=== PATIENT | female | born 1965 | race Caucasian/White ===

== ENCOUNTER 2019-08-24 10:00 | Outpatient (CLI) | payer OTHER, SELFPAY ==
--- NOTE | ~2019-08-24 | XR_ITS ---
EXAMINATION: XR shoulder LT min 2V EXAM DATE: 08/24/2019 10:18 INDICATION: Initial encounter following injury, with pain of the left shoulder. TECHNIQUE: The following left shoulder projections obtained: frontal projection with internal rotatio n, frontal projection with external rotation, Grashey, and scapular Y view (4+ views). There is no p rior study for comparison. FINDINGS: No evidence of left shoulder rotator cuff calcific tendinosis. There is mild acromioclav icular joint primary osteoarthritis. There are no acute fractures or dislocations identified. There is no subcutaneous gas. The soft tissue is unremarkable. There are no radiopaque foreign bodies. IMPRESSION: 1. XR shoulder LT min 2V exam without acute osseous findings. Reviewed, dictated and finalized at location B. S ORDER SPECIALIST
== END 2019-08-24 10:01 | disposition home or self-care (01) ==
LOC: ANHIMG 10:06
PROVIDERS: PCP Physician Assistant; Visit Provider Physician Assistant
DX: S49.92XA Unspecified injury of left shoulder and upper arm, initial encounter (principal); X58.XXXA Exposure to other specified factors, initial encounter
CPT/HCPCS: 73030

== ENCOUNTER 2019-09-15 10:55 | Outpatient (CLI) | payer OTHER, SELFPAY ==
--- NOTE | ~2019-09-15 | MR_ITS ---
EXAMINATION: MR shoulder LT wo con DATE: 09/15/2019 12:05 INDICATION: Left shoulder pain post left shoulder and upper arm injury. TECHNIQUE: Magnetic resonance imaging (MRI) of the left shoulder was performed without intravenous co ntrast. Sequences included axial PD-weighted FS FSE, coronal oblique PD-weighted FS FSE, coronal obli que T2-weighted FS FSE, sagittal PD-weighted FS FSE, and sagittal T1-weighted SE. COMPARISON: Left shoulder radiographs dated 08/24/2019 FINDINGS: Coracoacromial arch: The acromion undersurface is curved in morphology (type II). The coracoacromial ligament is normal. M ild acromioclavicular osteoarthritis. Rotator cuff: Large articular sided tear involving the entire supraspinatus and infraspinatus tendons along the sup erior facet footplate which involves greater than two thirds of the tendon thickness throughout the t ear and with at least a small region of full-thickness tear at the distal conjoined portion of the te ndon. The remaining frayed appearing bursal sided fibers of both tendons are of indeterminate functio nal integrity. The tear margin is retracted approximately 2.5 cm medially to the level of the apex of the humeral head with severe tendinopathy and fraying extending an additional 1.5 cm medially from t he retracted tear margin. Teres minor tendon is normal. Mild to moderate subscapularis tendinopathy w ith full thickness tear along the cephalad half of the lesser tuberosity footplate of the subscapular is tendon. Normal rotator cuff muscle bulk and signal. Biceps tendon, glenoid labrum and glenohumeral cartilage: The normal-appearing long head of the biceps tendon has subluxed across the subscapularis tear defect at the cephalad aspect of the lesser tuberosity. Glenoid labrum is normal. Glenohumeral cartilage i s normal. Fluid: Physiologic amount of fluid in the glenohumeral joint and biceps tendon sheath. No loose osteochondra l bodies. Moderate amount of fluid along with mild synovitis throughout the subacromial/subdeltoid bu rsae which could be related to bursitis and/or decompression of fluid from the glenoid humeral joint space via the full-thickness portions of the rotator cuff tear. Bones: Bone alignment is normal. No fracture or pathologic marrow replacing process. Mild cystic change at t he greater tuberosity likely related to chronic rotator cuff disease.. IMPRESSION: 1. Severe supraspinatus and infraspinatus tendinopathy with large tear along the footplates of both t endons with large severe bursal sided component and smaller full-thickness component. The residual in tact appearing bursal sided fibers appear frayed and are of indeterminate functional integrity. 2. Full-thickness tear of the cephalad half of the subscapularis footplate allowing subluxation of th e long head biceps tendon across the rim of the intertubercular groove across the lesser tuberosity s ubscapular tendon tear defect. 3. Likely at least mild subacromial/subdeltoid bursitis. 4. Mild acromioclavicular osteoarthritis. Reviewed, dictated and finalized at location A. ESALE ACCOUNT MANAGER IMPRESSION: 1. Severe supraspinatus and infraspinatus tendinopathy with large tear along th e footplates of both tendons with large severe bursal sided component and small er full-thickness component. The residual intact appearing bursal sided fibers appear frayed and are of indeterminate functional integrity. 2. Full-thickness tear of the cephalad half of the subscapularis footplate allo wing subluxation of the long head biceps tendon across the rim of the intertube rcular groove across the lesser tuberosity subscapular tendon tear defect. 3. Likely at least mild subacromial/subdeltoid bursitis. 4. Mild acromioclavicular osteoarthritis.
== END 2019-09-15 10:56 | disposition home or self-care (01) ==
PROVIDERS: PCP Physician Assistant; Visit Provider Physician Assistant
DX: S49.92XA Unspecified injury of left shoulder and upper arm, initial encounter (principal); X58.XXXA Exposure to other specified factors, initial encounter; M19.012 Primary osteoarthritis, left shoulder; M75.52 Bursitis of left shoulder
CPT/HCPCS: 73221

== ENCOUNTER 2019-09-18 01:30 | Day surgery (SDC) | payer OTHER, SELFPAY ==
[2019-09-07 11:53] VITALS: BMI 41.5
[2019-09-18] VITALS (10 sets, daily range): BP systolic 119–148; BP diastolic 65–84; PULSE 82–92; RESP 12–17; TEMP 36.2; O2SAT 92–100
--- NOTE | ~2019-09-18 | XR_ITS ---
EXAMINATION: XR surgery orthopedic DATE: 09/18/2019 09:41 INDICATION: Arthrodesis at the left second tarsal metatarsal joint. TECHNIQUE: 3 fluoroscopic spot images of the left fore/mid foot were obtained during procedure perfor med by Dr. Murphy. Radiologist was not present for the imaging or procedure. The amount of fluorosc opy time used during this procedure was 0.3 minutes. COMPARISON: 04/17/2019 FINDINGS: Arthrodesis at the second tarsal metatarsal joint with dorsal staple fixation. Alignment appears to r emain anatomic. Osteoarthritis with mild to moderate joint space narrowing at the third and fourth ta rsal metatarsal joints. No fracture. IMPRESSION: 1. Second tarsal metatarsal arthrodesis with dorsal staple fixation. See procedure note for further d etail. Reviewed, dictated and finalized at location A. STIGATIONS MANAGER IMPRESSION: 1. Second tarsal metatarsal arthrodesis with dorsal staple fixation. See proced ure note for further detail.
[2019-09-18] MEDS: LACTATED RINGERS 1,000 ML 30 ML IV CONT ×2 (06:30→10:03)
[2019-09-18 07:11] LABS: Glucose Point of Care 107 (65-105)
--- NOTE | 2019-09-18 07:19 | WPDANESEPPF ---
Anes - Initial Pre Proc Eval Procedure: Operation Date: 09/18/19 07:30 Proposed Procedures p Arthrodesis Second Metatarsal Cuneiform Joint Left Foot - Robin Murphy JR, MD Date/Time: 09/18/19 07:19 Surgeon: Robin Murphy JR, MD Pre Op Diagnosis: OA Second Metatarsal Cuneiform Joint Left Foot Patient Data Age: 53 Gender: F Height: 1.7 m Weight: 121 kg Last Vital Signs Temp 36.2 C L 09/18/19 07:02 Pulse 88 09/18/19 07:02 Resp 16 09/18/19 07:02 BP 148/78 H 09/18/19 07:02 Pulse Ox 97 09/18/19 07:02 Allergies Allergy/AdvReac Type Severity Reaction Status Date / Time No Known Allergies Allergy Unverified 09/18/19 06:12 Home Medications Medication Instructions Recorded Confirmed Type alprazolam 0.5 mg PO DIRECTED PRN 09/07/19 09/18/19 History celecoxib 100 mg PO BID 09/07/19 09/18/19 History losartan-hydrochlorothiazide 1 tablet PO DAILY 09/07/19 09/18/19 History metformin 750 mg PO DAILY 09/07/19 09/18/19 History multivitamin 1 tablet PO DAILY 09/07/19 09/18/19 History venlafaxine 150 mg PO DAILY 09/07/19 09/18/19 History Laboratory Tests 09/18/19 06:36 POC Capillary Glucose 107 mg/dl mg/dl (65-105) Patient hx anesthesia problems: none Family hx anesthesia problems: none PMFSH Past Medical History Medical History (Updated 09/17/19 @ 11:12 by Raul Salinas DO) Anxiety Depression Diabetes type 2, controlled Hypertension Palpitation Surgical History Surgical History (Updated 09/17/19 @ 11:12 by Raul Salinas DO) History of mitral valve repair 1973 for MVP History of tonsillectomy History of tubal ligation Family History Family History (Updated 11/07/18 @ 09:47 by DOCTOR UNKNOWN) Father Family history of malignant neoplasm Grandparent Family history of lung cancer Social History Social History Smoking status: Never smoker Anes - Eval Final PreProcedure Day of Procedure 09/18/19 07:19 Patient weight: morbidly obese Heart: regular rate and rhythm Lungs: clear to auscultation and normal air movement Airway: Mallampati scale Neurological: alert and oriented Last oral intake: >/= 8 hours ASA classification: III Emergent: no Anesthetic plan: proceed Anesthesia type and monitoring: general LMA and standard monitoring Informed Consent: The patient's anesthetic plan and its attendant risks and benefits were discussed with the patient/family/POA. Questions were solicited and answers provided to the satisfaction of the patient/family/POA.
--- NOTE | 2019-09-18 07:23 | WPDANESPNB ---
Anes - Peripheral Nerve Block Date/Time: 09/18/19 07:23 I have discussed with the patient/family/POA the placement of a peripheral nerve block for post-operative pain management, including associated risks, benefits, complications, and side effects. Alternative methods of post-operative analgesia were detailed. Questions were solicited and answers provided to the satisfaction of the patient/family/POA. Time-Out: A pre-procedural Time-Out was completed immediately before starting the procedure and confirmed: Patient Identification, Site, Procedure, Patient Position and the Availability of Requisite Equipment. Clinical Indications: Acute post-operative pain management requested by the operative surgeon. Nerve Block Insertion Note Anes-nerve block: posterior fossa sciatic left and adductor canal left Patient position: supine (for adductor canal) and other (right lateral for popliteal) Skin prep: chlorhexidine Needle: 22 gauge, stimulating, insulated echogenic needle. Needle length: 80 mm Technique: nerve stimulation lost at (mA) (for popliteal lost at 0.2) and ultrasound Injectate: bupivacaine 0.5% with epi 5 mcg/ml (20 mL for popliteal, 10 mL for adductor canal) Observations: tolerated well Complications: none Procedure start time:: 727 Procedure end time:: 737
--- NOTE | 2019-09-18 07:34 | WPDHPUPDATE1 ---
History and Physical Update Update Date/Time: 09/18/19 07:34 History and Physical has been reviewed, including an updated exam of the patient. There are NO changes in the patient's condition. Risks, benefits, and alternatives have been discussed and questions answered. Patient agrees to proceed with procedure.
[2019-09-18] MEDS: ceFAZolin 3 GM/D5W 100 ML 100 ML IVPB (07:40)
--- NOTE | 2019-09-18 09:54 | PM.OP ---
Procedure Note - Brief Procedure Note - Brief Date of procedure: 09/18/19 Pre-op diagnosis: OA Second Metatarsal Cuneiform Joint Left Foot Post-op diagnosis: same Procedure performed: Second metatarsal cuneiform joint fusion left foot Anesthesia: GLMA Surgeon: Robin Murphy JR, DPM Estimated blood loss (mL): 1 Complications: No immediate complications Condition: stable Disposition: same day
[2019-09-18 10:19] LABS: Glucose Point of Care 120 (65-105)
--- NOTE | 2019-09-18 13:59 | OP_ITS ---
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 PROCEDURE: Arthrodesis of the 2nd metatarsocuneiform joint left foot. PATHOLOGY: None. ANESTHESIA: General with a popliteal fossa block. HEMOSTASIS: Pneumatic ankle tourniquet at 250 mmHg. ESTIMATED BLOOD LOSS: Minimal. MATERIALS USED: 1.1 x 2.6 cm allograft, 1 Arthrex Nitinol staple, 20 x 15 mm, 3-0 Vicryl and 4-0 Vicryl and 4-0 Monocryl. INJECTABLES: None. COMPLICATIONS: None. PROCEDURE IN DETAIL: Under mild sedation, the patient was brought into the operating room, placed on the operating table in the supine position. Pneumatic ankle tourniquet was placed about the patient's left ankle. Following general anesthesia and a previous popliteal fossa block, the left foot was then scrubbed, prepped, and draped in the usual aseptic manner. An Esmarch bandage was then used to examine the patient's left foot and the pneumatic ankle tourniquet was then inflated. Attention was then directed to the dorsal aspect of the 2nd metatarsocuneiform joint, where incision was made just proximal to the navicular cuneiform joint and extended distal to the central shaft of the 2nd metatarsal and extended to the shaft of the 2nd metatarsal proximally. At this point, careful dissection was continued deep down to the medial aspect of the 2nd metatarsocuneiform joint. The neurovascular bundle was identified and retracted laterally. At this point, careful dissection was continued deep down to the periosteum and capsular structures overlying the 2nd metatarsocuneiform joint. There was no remaining neurovascular branches in the field. Next, a periosteum capsular incision was made. The full length of the skin incision exposing the 2nd metatarsocuneiform joint. There was 2 large loose bodies present to the dorsum of the 2nd metatarsocuneiform joint. These were carefully released of all capsular and ligamentous structures and removed from the operative site. At this point, there was a large void present to the dorsum of the 2nd metatarsocuneiform joint. Next, two 0.62 inch K-wires were driven from dorsal to plantar across the central aspect of the middle cuneiform and corresponding 2nd metatarsal base. A distractor joint structure was then placed from dorsal plantar and then used to distract the 2nd metatarsocuneiform joint. Remaining cartilage was denuded with utilizing a curette. At this point, a 0.062 inch K-wire was used to drill into the anterior aspect of the central cuneiform and base of the 2nd metatarsal. At this point, there was a large deficit noted to the 2nd metatarsocuneiform joint and a tricortical allograft was shaped and cut to size on the back table after being measured approximately 0.8 cm x 1.4 cm in depth. This was packed deep into the 2nd metatarsocuneiform joint utilizing a bone tamp. Care was taken to make sure that the dorsal aspect of the bone wedge was flushed as to prevent an osteophyte. There were some large osteophytosis noted to the base of the 2nd metatarsal as well as the dorsum of the central cuneiform, this was debrided. Furthermore, there was an osteophyte present just slightly medially along the dorsum of the lateral 1st metatarsal and 3rd metatarsocuneiform joint. This was also debrided utilizing a rongeur. Care was taken to make sure that the entire dorsum of the central midfoot was smoothed with a . Next, a 20 mm x 15 mm Nitinol compression staple from Arthrex was driven from dorsal to plantar across the arthrodesis site with excellent compression noted. Fluoroscopy views were taken both from the dorsal aspect and lateral
== END 2019-09-18 11:50 | disposition home or self-care (01) ==
PROVIDERS: PCP Physician Assistant; Visit Provider Podiatrist Foot & Ankle Surgery
PROC: (CPT 28750; principal; 2019-09-18 07:30)
DX: M19.072 Primary osteoarthritis, left ankle and foot (principal); G89.18 Other acute postprocedural pain; I10 Essential (primary) hypertension; E11.9 Type 2 diabetes mellitus without complications; F41.8 Other specified anxiety disorders; Z79.84 Long term (current) use of oral hypoglycemic drugs; E66.01 Morbid (severe) obesity due to excess calories; Z68.41 Body mass index [BMI] 40.0-44.9, adult
CPT/HCPCS: 28740; 64445; 64447; C1713; J0690; J1100; J2250; J2405; J2704; J3010; J7120

== ENCOUNTER 2019-11-24 05:47 | Outpatient (CLI) | payer OTHER, SELFPAY ==
[2019-11-24 18:34] LABS: SARS-CoV-2 RNA PCR Negative
== END 2019-11-24 05:48 | disposition home or self-care (01) ==
LOC: ANHCOVIDDT 05:48
PROVIDERS: PCP Physician Assistant; Visit Provider Orthopaedic Surgery
DX: Z01.818 Encounter for other preprocedural examination (principal); Z11.59 Encounter for screening for other viral diseases
CPT/HCPCS: 87635; C9803; U0003

== ENCOUNTER 2019-11-24 07:45 | Outpatient (CLI) | payer OTHER, SELFPAY ==
[2019-11-24 08:08] LABS: Blood Urea Nitrogen 16 mg/dL (7-17); Carbon Dioxide 29 mmol/L (22-30); Chloride 102 mmol/L (98-107); Estimated Glomerular Filt Rate > 60; Glucose 118 mg/dL (65-105); Potassium 3.6 mmol/L (3.4-5.0); Sodium 138 mmol/L (137-145)
== END 2019-11-24 07:46 | disposition home or self-care (01) ==
PROVIDERS: PCP Physician Assistant; Visit Provider Orthopaedic Surgery
DX: Z01.818 Encounter for other preprocedural examination (principal); R73.03 Prediabetes
CPT/HCPCS: 36415; 80048

== ENCOUNTER 2019-11-26 01:15 | Day surgery (SDC) | payer OTHER, SELFPAY ==
[2019-11-23 12:55] VITALS: BMI 41.4
[2019-11-26] VITALS (9 sets, daily range): BP systolic 115–154; BP diastolic 63–74; PULSE 77–98; RESP 13–21; TEMP 36.1–36.7; O2SAT 93–98
--- NOTE | 2019-11-26 07:06 | WPDANESEPPF ---
Anes - Initial Pre Proc Eval Procedure: Operation Date: 11/26/19 07:30 Proposed Procedures p Left Arthroscopic Rotator Cuff Repair - Antonio Fajardo MD Date/Time: 11/26/19 07:06 Surgeon: Antonio Fajardo MD Pre Op Diagnosis: left rotator cuff tear Patient Data Age: 54 Gender: F Height: 1.7 m Weight: 120.5 kg Last Vital Signs Temp 36.7 C 11/26/19 06:30 Pulse 89 11/26/19 06:30 Resp 20 11/26/19 06:30 BP 144/73 H 11/26/19 06:30 Pulse Ox 97 11/26/19 06:30 Allergies Allergy/AdvReac Type Severity Reaction Status Date / Time No Known Allergies Allergy Verified 11/26/19 07:01 Home Medications Medication Instructions Recorded Confirmed Type alprazolam 0.5 mg PO DIRECTED PRN 09/07/19 11/26/19 History celecoxib 100 mg PO BID 09/07/19 11/26/19 History losartan-hydrochlorothiazide 1 tablet PO DAILY 09/07/19 11/26/19 History metformin 750 mg PO DAILY 09/07/19 11/26/19 History aspirin 81 mg tablet,delayed 81 mg PO DAILY 09/18/19 11/26/19 History release venlafaxine 150 mg 150 mg PO DAILY 09/18/19 11/26/19 History capsule,extended release 24 hr oxycodone-acetaminophen 1 tablet PO Q4-6H PRN 11/23/19 11/26/19 History terbinafine HCl 250 mg PO DAILY 11/23/19 11/26/19 History Patient hx anesthesia problems: none Family hx anesthesia problems: none PMFSH Past Medical History Medical History (Updated 11/26/19 @ 07:11 by Robert Goff MD) Anxiety Arthritis Cardiac arrhythmia Depression Diabetes type 2, controlled Hypertension Mitral valve prolapse VALVE SURGERY 1973- CHILD FOR MITRAL VALVE PROLAPSE, FOLLOWS WITH DR. HOOKER Morbid obesity with BMI of 40.0-44.9, adult Palpitation Traumatic tear of left rotator cuff Surgical History Surgical History History of foot surgery History of mitral valve repair 1973 for MVP History of tonsillectomy History of tubal ligation Social History Social History Smoking status: Never smoker Gender identity (if verbalized by the patient): Female Anes - Evpercy Final PreProcedure Day of Procedure 11/26/19 07:06 Patient weight: morbidly obese Heart: regular rate and rhythm Lungs: clear to auscultation and normal air movement Airway: Mallampati scale class II Neurological: alert and oriented Last oral intake: >/= 8 hours ASA classification: III Emergent: no Anesthetic plan: proceed Anesthesia type and monitoring: general ETT Informed Consent: The patient's anesthetic plan and its attendant risks and benefits were discussed with the patient/family/POA. Questions were solicited and answers provided to the satisfaction of the patient/family/POA.
[2019-11-26] MEDS: LACTATED RINGERS 1,000 ML 30 ML IV CONT ×2 (07:23→11:33)
--- NOTE | 2019-11-26 07:23 | WPDANESPNB ---
Anes - Peripheral Nerve Block Date/Time: 11/26/19 07:23 I have discussed with the patient/family/POA the placement of a peripheral nerve block for post-operative pain management, including associated risks, benefits, complications, and side effects. Alternative methods of post-operative analgesia were detailed. Questions were solicited and answers provided to the satisfaction of the patient/family/POA. Time-Out: A pre-procedural Time-Out was completed immediately before starting the procedure and confirmed: Patient Identification, Site, Procedure, Patient Position and the Availability of Requisite Equipment. Clinical Indications: Acute post-operative pain management requested by the operative surgeon. Nerve Block Insertion Note Anes-nerve block: supraclavicular left Patient position: supine Skin prep: chlorhexidine Needle: 22 gauge, stimulating, insulated echogenic needle. Needle length: 80 mm Technique: ultrasound (in plane) Injectate: bupivacaine 0.5% with epi 5 mcg/ml (20cc) Observations: tolerated well Complications: none Procedure start time:: 730 Procedure end time:: 735
--- NOTE | 2019-11-26 07:23 | WPDHPUPDATE1 ---
History and Physical Update Update Date/Time: 11/26/19 07:23 History and Physical has been reviewed, including an updated exam of the patient. There are NO changes in the patient's condition. Risks, benefits, and alternatives have been discussed and questions answered. Patient agrees to proceed with procedure.
[2019-11-26 07:24] LABS: Glucose Point of Care 107 (65-105)
[2019-11-26] MEDS: ceFAZolin 3 GM/D5W 100 ML 100 ML IVPB (07:41)
[2019-11-26] MEDS: ONDANSETRON INJ 4 MG/2 ML VIAL IV PUSH (12:05)
[2019-11-26 13:02] LABS: Glucose Point of Care 173 (65-105)
--- NOTE | 2019-11-27 15:49 | PM.PROC ---
Procedure Note - Detailed Date of procedure: 11/26/19 Pre-op diagnosis: left rotator cuff tear Post-op diagnosis: other (1. Massive rotator cuff tear. 2. Partial biceps tendon tear. 3. Subacromial impingement. ) Procedure performed: 1. Arthroscopic rotator cuff repair. 2. Arthroscopic biceps tenodesis. 3. Arthroscopic subacromial decompression. Description of procedure: Massive tear including the upper border of the subscapularis. Acute on chronic injury. Supraspinatus anterior tear as well as the anterior infraspinatus. Repair accomplished with 4 bone tunnels. Simple sutures x3 through each tunnel. Margin convergence at the posterior split. Biceps tenodesis incorporated into the anterior tunnel. Superior labral degenerative lesion treated with simple debridement. Subacromial decompression and bursectomy performed with acromioplasty. Anesthesia: GLMA and regional Surgeon: Antonio Fajardo MD Estimated blood loss (mL): 20 Complications: None Disposition: PACU Findings: Brief history: Patient was previously well with respect to the shoulder. She fell. She complains of exquisite intense shoulder pain and weakness. Surgical repair performed subacutely. Patient is morbidly obese. Operative detail: Preoperative antibiotics were given. An interscalene block was administered in the preoperative area. The patient was bought brought to the operating room. A general anesthetic was administered. The patient was carefully positioned in the beach chair position. The head and neck were carefully positioned. The non operative extremity was also carefully positioned. The shoulder was prepped and draped in the usual sterile fashion. Examination was performed. Standard posterior and anterior arthroscopic portals were established. Inflow achieved with the arthroscopic pump using saline and epinephrine. The glenohumeral joint was carefully inspected. The articular cartilage showed minimal fraying. The superior glenoid labrum had degenerative tearing. There was a moderate capsulitis. No contracture. The biceps was partially torn. It was released from the superior labrum. Massive rotator cuff tear was evident. This included the upper border of the subscapularis. Tissue was in good shape. Attention was turned to the bursal side. The rotator cuff footprint was lightly prepared for repair. Subacromial decompression was performed with the arthroscopic shaver. The tear was carefully assessed for mobility. Tissue releases were performed primarily superiorly where there was some adhesions. The tendon was modestly mobile. Subscapularis was repaired with a single bone tunnel using the ArthroTunneler technique. Three sutures were passed. Two tapes and 1 ortho cord. The antegrade suture Passer was used. Multiple accessory arthroscopic portals were used as needed. Simple sutures were tied. The repair was quite contreras. Biceps tendon was incorporated by weaving the suture through the biceps tendon prior to tying of the sutures. Proximal stump was debrided. Three tunnels were placed in the greater tuberosity. Three sutures were placed through each tunnel. Sequential passing the sutures was performed after assessing mobility of the tear. It was somewhat L-shaped with the posterior split at the infraspinatus. This was treated with a single margin convergence suture. Sutures were tied arthroscopically. Complete repair was accomplished. The arthroscopic instruments were removed. The wounds were closed with 3-0 Monocryl subcuticular suture and steri strips. There were no complications. A sling was applied and the patient brought to the recovery room.
== END 2019-11-26 13:47 | disposition home or self-care (01) ==
PROVIDERS: PCP Physician Assistant; Visit Provider Orthopaedic Surgery
PROC: (CPT 29805; principal; 2019-11-26 07:30)
DX: S46.012A Strain of muscle(s) and tendon(s) of the rotator cuff of left shoulder, initial encounter (principal); S46.212A Strain of muscle, fascia and tendon of other parts of biceps, left arm, initial encounter; M75.42 Impingement syndrome of left shoulder; W11.XXXA Fall on and from ladder, initial encounter; G89.18 Other acute postprocedural pain; I10 Essential (primary) hypertension; E11.9 Type 2 diabetes mellitus without complications; M19.90 Unspecified osteoarthritis, unspecified site; F32.9 Major depressive disorder, single episode, unspecified; Z79.84 Long term (current) use of oral hypoglycemic drugs; Z79.82 Long term (current) use of aspirin; E66.01 Morbid (severe) obesity due to excess calories; Z68.41 Body mass index [BMI] 40.0-44.9, adult
CPT/HCPCS: 29827; 29828; 29826; 64415; A4565; J0330; J0360; J0690; J1100; J2250; J2405; J2704; J2710; J7120

== ENCOUNTER 2020-12-29 08:29 | Outpatient (CLI) | payer MEDICAID, SELFPAY ==
[2020-12-29 08:55] LABS: Basophils Absolute Auto 0.1 K/mm3 (0.0-0.1); Basophils Percent Auto 0.6 % (0.2-1.2); Hematocrit 37.1 % (37.0-47.0); Hemoglobin 11.7 g/dL (12.0-15.0); Immature Granulocyte Absolute 0.03 K/mm3 (0.00-0.031); Immature Granulocyte Percent A 0.3 % (0-0.5); Lymphocytes Absolute Auto 1.99 K/mm3 (0.9-3.2); Mean Corpuscular HGB Conc 31.5 g/dl (32-36); Mean Corpuscular Hemoglobin 28.6 pg (26-34); Mean Corpuscular Volume 90.7 fl (80-100); Mean Platelet Volume 8.7 fl (7.4-10.4); Monocytes Absolute Auto 0.8 K/mm3 (0.1-0.6); Monocytes Percent Auto 8.3 % (2.6-8.5); Neutrophils Absolute Auto 6.2 K/mm3 (1.3-6.7); Neutrophils Percent Auto 68.8 % (45.5-73.1); Platelet Count Result 361 k/mm3 (150-375); Red Blood Count 4.09 M/mm3 (4.2-5.4); Red Cell Distribution Width 13.3 % (11.5-14.5)
[2020-12-29 10:19] LABS: Alanine Aminotransferase 31 U/L (4-35); Albumin Level 4.4 g/dL (3.5-5.1); Alkaline Phosphatase 101 U/L (38-126); Anion Gap 6 mmol/L (8-16); Aspartate Amino Transferase 33 U/L (14-36); Bilirubin,Total 0.4 mg/dL (0.2-1.3); Blood Urea Nitrogen 18 mg/dL (7-17); Calcium 9.5 mg/dL (8.4-10.2); Carbon Dioxide 32 mmol/L (22-30); Chloride 104 mmol/L (98-107); Cholesterol 188 mg/dL (0-200); Estimated Glomerular Filt Rate 51; Free T4 Free Thyroxine 1.05 ng/mL (0.78-2.19); Glucose 123 mg/dL (65-105); HDL Direct 47 mg/dL; Hemoglobin A1C 6.6 % (<5.7); LDL Cholesterol Direct 95 mg/dL; Potassium 4.4 mmol/L (3.4-5.0); Sodium 142 mmol/L (137-145); Thyroid Stimulating Hormone 0.155 uIU/mL (0.465-4.680); Triglycerides 111 mg/dL (<150)
== END 2020-12-29 08:30 | disposition home or self-care (01) ==
LOC: ANHLAB 08:35
PROVIDERS: PCP Physician Assistant; Visit Provider Physician Assistant
DX: R73.03 Prediabetes (principal); Z51.81 Encounter for therapeutic drug level monitoring; Z79.899 Other long term (current) drug therapy; Z13.220 Encounter for screening for lipoid disorders
CPT/HCPCS: 36415; 80053; 80061; 83036; 84439; 84443; 85025

== ENCOUNTER 2021-01-31 08:01 | Outpatient (CLI) | payer MEDICAID, SELFPAY ==
--- NOTE | ~2021-01-31 | MM_ITS ---
EXAMINATION: MM screening jet BI w kenia HISTORY: Screening TECHNIQUE: Craniocaudal and mediolateral oblique 3-D tomosynthesis images were obtained and synthetic 2-D images were generated. CAD analysis was submitted and interpreted. COMPARISON: Comparison to multiple prior studies sequentially, with oldest reviewed study dated 09/10. BREAST PARENCHYMAL COMPOSITION: There are scattered areas of fibroglandular density. FINDINGS: There is no evidence of suspicious mass, calcification, or architectural distortion to sugg est malignancy in either breast. There has been no suspicious interval change. IMPRESSION: 1. No mammographic evidence of malignancy. 2. Recommend routine screening mammography in one year. BI-RADS Category 1: Negative Reviewed, dictated and finalized at location A.
== END 2021-01-31 08:02 | disposition home or self-care (01) ==
PROVIDERS: PCP Physician Assistant; Visit Provider Obstetrics & Gynecology
DX: Z12.31 Encounter for screening mammogram for malignant neoplasm of breast (principal)
CPT/HCPCS: 77063; 77067

== ENCOUNTER 2021-06-12 14:12 | Outpatient (CLI) | payer MEDICAID, SELFPAY ==
--- NOTE | ~2021-06-12 | MR_ITS ---
EXAMINATION: MR shoulder LT wo con DATE: 06/12/2021 15:37 INDICATION: Left rotator cuff tear presenting with left shoulder pain. TECHNIQUE: Magnetic resonance imaging (MRI) of the left shoulder was performed without intravenous co ntrast. Sequences included axial PD-weighted FS FSE, coronal oblique PD-weighted FS FSE, coronal obli que T2-weighted FS FSE, sagittal PD-weighted FS FSE, and sagittal T1-weighted SE. COMPARISON: Left shoulder radiographs dated 06/02/2021 and left shoulder MRI dated 09/15/2019 FINDINGS: Study is mildly limited by relatively decreased [id number] due to patient body habitus necessita ting use of a wrap coil. Coracoacromial arch: The acromion undersurface is flat in morphology (type I) and appears thinned consistent with interval acromioplasty. The remaining coracoacromial ligament is normal. Mild acromioclavicular osteoarthriti s. Rotator cuff: There are suture anchor sites along the superior and middle facet footplates of the greater tuberosit y consistent with interval supraspinatus and infraspinatus tendon tear repair. There is a recurrent f ull-thickness tear involving the entire supraspinatus and anterior two thirds of the infraspinatus te ndon. Tear margin is retracted up to 2 cm medially situated midway between the apex of the humeral he ad and the superior rim of the glenoid. There is moderate fatty atrophy of the infraspinatus muscle b melissa and retraction with at least mild fatty atrophy of the supraspinatus muscle belly. The teres min or tendon is normal. There has been interval repair of the previously seen subscapularis tendon tear which appears to remain intact. No asymmetric atrophy or abnormal signal of the infraspinatus and ter es minor muscles. Biceps tendon, glenoid labrum and glenohumeral cartilage: Interval resection of the long head biceps tendon from the biceps labral complex and bicipital tenode sis with anchor at the cephalad aspect of the bicipital groove. Small linear tear at the base of the 12:00-12:30 position of the glenoid labrum which was not appreciated on the prior study. Mild cystlik e change along the underlying superior rim of the glenoid at the site of a prior small focus of edema suggest the tear may have been previously present but has progressed since the prior study. Glenohum eral cartilage appears to remain normal. Fluid: Small glenohumeral joint effusion which extends into the subacromial/subdeltoid bursa through the ful l-thickness rotator cuff tear. No loose osteochondral bodies. Bones: Normal marrow signal with no edema, fracture or abnormal marrow replacing process. There is mild ceph alad subluxation of the humeral head with respect to the glenoid with narrowing of the subacromial sp earlene now measuring approximately 2.5 cm between the humeral head cartilage surface and the undersurfac e of the acromion. IMPRESSION: 1. Recurrent massive full-thickness rotator cuff tear involving the entire supraspinatus and anterior two thirds of the infraspinatus tendon. 2. Intact subscapularis tendon repair. 3. Intact bicipital tenodesis. 4. New versus progressive small tear at the base of the superior glenoid labrum. 5. Unchanged mild acromioclavicular osteoarthritis. Reviewed, dictated and finalized at location A. E MECHANIC IMPRESSION: 1. Recurrent massive full-thickness rotator cuff tear involving the entire supr aspinatus and anterior two thirds of the infraspinatus tendon. 2. Intact subscapularis tendon repair. 3. Intact bicipital tenodesis. 4. New versus progressive small tear at the base of the superior glenoid labrum . 5. Unchanged mild acromioclavicular osteoarthritis.
== END 2021-06-12 14:13 | disposition home or self-care (01) ==
LOC: ANHIMG 14:17
PROVIDERS: PCP Physician Assistant; Visit Provider Orthopaedic Surgery
DX: M75.102 Unspecified rotator cuff tear or rupture of left shoulder, not specified as traumatic (principal); M75.22 Bicipital tendinitis, left shoulder; M19.012 Primary osteoarthritis, left shoulder
CPT/HCPCS: 73221

== ENCOUNTER 2021-09-26 07:02 | Outpatient (RCR) | payer MEDICAID, SELFPAY ==
--- NOTE | 2021-09-26 08:07 | PTOPEVAL ---
Thank you for referring Marianne Chin to [facility].? The patient is scheduled to be seen for therapy? 1 x/week for 3 weeks. Please review, sign, date and return this plan of care DALLIN. I agree with and certify that the following plan of care is medically necessary. 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 Subjective Information She c/o right medial knee pain Query Text:As Reported By Patient/ for no reason. She received Family an injection 09/08/21. She reports limitations with walking, standing, squatting, kneeling, daily task. Denies fitness program Diagnostic Tests X-Rays For This Problem Yes: Mild tricompartmental degenerative changes Previous Treatments Previous Treatments For This Problem no Pain Assessment Self Report Pain Assessment Right Knee(s) Reported Pain Level 0 Pain Description Burning Pain Frequency Chronic Lowest Pain Intensity 0 Greatest Pain Intensity 5 Pain Aggravating Factors Exercise/Activity,Stair Climbing,Walking,Weight Bearing/Standing Lower Extremity Range of Motion Knee Range of Motion Left Knee Flexion Range of Motion - Active 110 Knee Extension Range of Motion - Active 0 Right Knee Flexion Range of Motion - Active 115 Knee Extension Range of Motion - Active 0 Lower Extremity Muscle Strength Testing General Lower Extremity Strength Gross Lower Extremity Strength caitlin hip and knee 5/5 except the following right and left hip abd: 3/5 right knee flex: 4/5 Muscle Length Testing Muscle Length Testing Two-Joint Hip Flexor Shortened Muscles Short (R) Iliopsoas,Short (L) Iliopsoas,Short (R) Rectus Femoris,Short (L) Rectus Femoris,Short (R) Ilial Tib Band,Short (L) Ilial Tib Band Piriformis w/Hip Neutral (R) Severe Tightness,(L) Severe Tightness Left Hamstring Length 0 Query Text:(90 - 90 Position) Right Hamstring Length 0 Query Text:(90 - 90 Position) Posture Posture Standing Position Shoulder Posture (L) Rounded,(R) Rounded Scapula Posture (L) Protracted,(R) Protracted, (L) Elevated,(R) Elevated Weight Distribution
--- NOTE | 2021-09-28 11:24 | PCPTNOTE ---
Patient called & cancelled her remaining scheduled appointment this date due to work schedule and unable to attend therapy.
--- NOTE | 2021-09-28 13:31 | PCPTNOTE ---
Admitting Provider: Attending Provider: OSVALDO Abbott Patient:Marianne Chin Date of :1965 Physical Therapy Discharge Summary Patient called on 09/28/21 to cancel her remaining therapy visits due to changing jobs and her new work schedule. Patient?s initial visit was on 09/26/2021 and was seen for 1 visits. The goals have been not met at this time. Thank you for referring this patient to [facility]. Please review, sign, date and return this discharge summary DALLIN. I have been updated about the patient's current status and I agree with discharge from the above service at this time. Referring Physician Date
== END 2021-12-12 12:48 | disposition home or self-care (01) ==
LOC: ANHPT 07:02
PROVIDERS: PCP Physician Assistant; Visit Provider Physician Assistant Surgical
DX: M25.561 Pain in right knee (principal)
CPT/HCPCS: 97110; 97161

== ENCOUNTER 2022-05-07 08:55 | Outpatient (CLI) | payer OTHER, MEDICAID, SELFPAY ==
--- NOTE | 2022-05-07 09:00 | ECG_ITS ---
Measurements Intervals [place] Rate: 80 P: 33 MT: 160 QRS: -46 QRSD: 94 T: 12 QT: 355 QTc: 411 Interpretive Statements SINUS RHYTHM BASELINE ARTIFACT LEFT ANTERIOR FASCICULAR BLOCK CANNOT RULE OUT ANTEROSEPTAL MYOCARDIAL INFARCTION, OF INDETERMINATE AGE ABNORMAL ECG COMPARED TO ECG 02/06/2019 16:45:06 LEFT ANTERIOR FASCICULAR BLOCK NOW PRESENT Electronically Signed On 05-07-2022 16:10:09 CDT by Christopher Rodriguez M.D.
[2022-05-07 10:13] LABS: Anion Gap 13 mmol/L (8-16); Blood Urea Nitrogen 16 mg/dL (7-17); Calcium 8.6 mg/dL (8.4-10.2); Carbon Dioxide 26 mmol/L (22-30); Chloride 100 mmol/L (98-107); Estimated Glomerular Filt Rate 36; Glucose 100 mg/dL (65-110); Potassium 3.8 mmol/L (3.4-5.0); Sodium 139 mmol/L (137-145)
== END 2022-05-07 08:56 | disposition home or self-care (01) ==
LOC: ANHSURGERY 09:05
PROVIDERS: Anesthesiology; PCP Physician Assistant; Visit Provider Orthopaedic Surgery
DX: E11.9 Type 2 diabetes mellitus without complications (principal); Z01.818 Encounter for other preprocedural examination; I44.7 Left bundle-branch block, unspecified
CPT/HCPCS: 36415; 80048; 93005

== ENCOUNTER 2022-05-08 02:00 | Day surgery (SDC) | payer OTHER, MEDICAID, SELFPAY ==
--- NOTE | 2022-05-04 10:46 | PC.NURSE ---
PRE-OP INSTRUCTIONS, PLEASE READ CAREFULLY Report to the Outpatient Waiting Room, entrance under the green pavilion located off [facility], at time _0830_ on date _08/08/21_. Planned Procedure Time: _1030_. Time changes happen often and if your time is changed the preop area will call you the afternoon before. - You and your visitor will be asked to self-screen and do not enter if you have any COVID symptoms. - We encourage only one visitor and NO visitors under age 16 are allowed at this time. Your visitor will receive communication by the phone number that is given day of service. - The patient visitor is requested to social distance or may leave the building when not with patient due to restrictions. - A mask is required within the hospital. Patients may have clear liquids (water, carbonated beverages, clear teas, apple juice) until 3 hours prior to surgery (0730 AM) with a maximum of 20 ounces. - No food from midnight until time of surgery Take the following medications with a SIP of water the morning of surgery: _ALPRAZOLAM, BUPROPION_ Medications to discontinue per DR. KIRK - _ASPIRIN & DICLOFENAC OF TODAY_ Date to take last dose____05/04/22 Please no make-up, nail persian, hairspray, perfume, deodorant, or body powder the day of surgery. No jewelry (including any body piercings) or valuables the day of surgery, leave them at home. Please take a shower or bath the night before, or the morning of, surgery with an antibacterial soap. Wear comfortable, loose fitting clothing. - Jewelry must be removed prior to entering the operating room. Rings and piercings that are not removed may be cut off. - The hospital will not accept responsibility for valuables. - Please leave all valuables, including medications, at home the day of surgery. If you are going home after surgery, a licensed pile driver must drive you home. - NO public transportation without another adult. - We recommend that an adult stay with you for 24 hours following discharge. - We also recommend that you do not drive, make important decision, drink alcoholic beverages, or take any drugs that were not prescribed by your health care provider for at least 24 hours after your discharge time. Follow any additional instructions given to you from your surgeon. If you or anyone in your household have experienced Covid symptoms in the past week, please notify your surgeon or the nurse liaison at the phone number below for possible testing. Telephone instructions given to ____PT and asked if any additional questions and then verbalized understanding. Patient advised to call surgeon office or pre surgery nurse liaison [phone] if any additional questions.
[2022-05-04 10:53] VITALS: BMI 39.5
--- NOTE | 2022-05-07 09:55 | WPDANESEPPF ---
Anes - Initial Pre Proc Eval Procedure: Operation Date: 05/08/22 10:30 Proposed Procedures p Open Reduction Internal Fixation Left Ulnar Shaft Fracture - Antonio Fajardo MD Date/Time: 05/07/22 09:56 Surgeon: Antonio Fajardo MD Pre Op Diagnosis: left ulnar shaft fx Patient Data Age: 56 Gender: F Height: 1.7 m Weight: 114.54 kg Allergies Allergy/AdvReac Type Severity Reaction Status Date / Time cariprazine [From [facility]] Allergy Unknown SUICIDAL Verified 05/08/22 08:34 HALLUCINATIONS Home Medications Medication Instructions Recorded Confirmed Type alprazolam 0.5 mg tablet 0.5 mg PO DIRECTED PRN Anxiety 09/07/19 05/04/22 History losartan 50 mg-hydrochlorothiazide 1 tablet PO DAILY 09/07/19 05/04/22 History 12.5 mg tablet metformin 750 mg tablet,extended 750 mg PO DAILY 09/07/19 05/04/22 History release 24 hr aspirin 81 mg tablet,delayed 81 mg PO DAILY 09/18/19 05/04/22 History release (Adult Aspirin Regimen) progesterone micronized 100 mg 100 mg PO QAM 06/16/21 05/04/22 History capsule diclofenac sodium 75 mg 75 mg PO BID 08/31/21 05/04/22 History tablet,delayed release bupropion HCl 150 mg 24 hr tablet, 150 mg PO QAM 04/09/22 05/04/22 History extended release finasteride 1 mg tablet 1 mg PO DAILY 05/08/22 05/08/22 History semaglutide 0.25 mg or 0.5 mg (2 0.25 mg subcut WEEKLY 05/08/22 05/08/22 History mg/1.5 mL) subcutaneous pen injector (Ozempic) Patient hx anesthesia problems: none Family hx anesthesia problems: none Results Review: All pre-operative results and documents have been reviewed as part of the pre-operative evaluation. [facility]LY [facility] Past Medical History Medical History (Updated 05/02/22 @ 15:42 by Amanda Browne MA) Abscess of urethra and/or periurethral region Anxiety Arthritis Bronchitis Cardiac arrhythmia Depression Diabetes type 2, controlled History of patent ductus arteriosus (~1972) Hypertension Mitral valve prolapse VALVE SURGERY 1973- CHILD FOR MITRAL VALVE PROLAPSE, FOLLOWS WITH DR. FLEISSNER Morbid obesity with BMI of 40.0-44.9, adult Palpitation Traumatic tear of left rotator cuff Vertigo Surgical History Surgical History (Updated 04/18/22 @ 08:22 by Elif Colunga) History of colonoscopy (01/27/16) sigmoid diverticulitis History of foot surgery both feet History of mitral valve repair 1973 for MVP History of neck surgery (~1979) lymphectomy--benign History of right knee surgery (~2003) History of rotator cuff surgery left shoulder History of stress incontinence procedure using tension free vaginal tape (04/14/15) History of tonsillectomy (~1971) History of tubal ligation (12/20/00) Family History Family History Father Family history of malignant neoplasm Grandparent Family history of lung cancer Social History Social History (Updated 05/02/22 @ 15:37 by Amanda Browne MA) Smoking status: Never smoker Second hand tobacco smoke exposure: No Alcohol intake: never Substance use: never Substance use type: does not use Living arrangements: with family Gender identity (if verbalized by the patient): Female Spiritual care concerns: No Has the Lack of Transportation Kept You From Medical Appointments or From Getting Medications?: No Within the Past 12 Months, Were You Worried Whether Your Food Would Run Out Before You Got Money to Buy More?: Never True What is Your Housing Situation Today?: I Have Housing Are You Worried That in the Next 2 Months, You May Not Have Your Own Housing to Live In?: No Do You Have Trouble Paying Your Heating Or Electricity Bill?: Yes Do You Have Trouble Paying For Medicines?: Yes Are You Currently Unemployed and Looking for Work?: No Highest Level of Education Completed: Associate Degree Anes - Eval Final PreProcedure Day of Procedure 05/07/22 09:56 Patient weight: morbidly
[2022-05-08] VITALS (7 sets, daily range): BP systolic 103–127; BP diastolic 57–80; PULSE 70–102; RESP 14–17; TEMP 36.1–36.9; O2SAT 95–100
--- NOTE | ~2022-05-08 | XR_ITS ---
EXAMINATION: XR surgery orthopedic DATE: 05/08/2022 12:51 INDICATION: Open reduction internal fixation of a left ulnar diaphyseal fracture. TECHNIQUE: 5 fluoroscopic spot images of the left wrist and distal forearm were obtained during proce dure performed by Dr. Fajardo. Radiologist was not present for the imaging or procedure. The amoun t of fluoroscopy time used during this procedure was 0.5 minutes. COMPARISON: None. FINDINGS: Volar plate and screw fixation spanning a nondisplaced mildly comminuted fractures at the distal diap hysis of the left ulna. There is approximately 10 degrees residual volar angulation. No other fractur es identified. Mild osteoarthritis at the first carpometacarpal joint. Soft tissue swelling and expec alana small amount of postoperative gas in the soft tissues at the ulnar aspect of the distal forearm. IMPRESSION: 1. Near-anatomic alignment post open reduction internal fixation of a mildly comminuted distal diaphy seal fracture of the left ulna. Reviewed, dictated and finalized at location A. IMPRESSION: 1. Near-anatomic alignment post open reduction internal fixation of a mildly co mminuted distal diaphyseal fracture of the left ulna.
--- NOTE | 2022-05-08 07:28 | WPDHPUPDATE1 ---
History and Physical Update Update Date/Time: 05/08/22 07:28 History and Physical has been reviewed, including an updated exam of the patient. There are NO changes in the patient's condition. Risks, benefits, and alternatives have been discussed and questions answered. Patient agrees to proceed with procedure.
[2022-05-08] MEDS: ACETAMINOPHEN 500 MG TABLET 1000 MG PO (08:38)
[2022-05-08 09:00] LABS: Glucose Point of Care 100 mg/dl (65-105)
[2022-05-08] MEDS: LACTATED RINGERS 1,000 ML 30 ML IV CONT ×2 (09:02→12:49)
[2022-05-08] MEDS: KETOROLAC 15 MG/ML VIAL (*BKC) IV PUSH (09:04)
[2022-05-08] MEDS: ceFAZolin 2 GM/D5W 50 ML 2 GM/50 ML BAG IVPB (10:38)
--- NOTE | 2022-05-08 10:47 | WPDANESPNB ---
Anes - Peripheral Nerve Block Date/Time: 05/08/22 10:47 I have discussed with the patient/family/POA the placement of a peripheral nerve block for post-operative pain management, including associated risks, benefits, complications, and side effects. Alternative methods of post-operative analgesia were detailed. Questions were solicited and answers provided to the satisfaction of the patient/family/POA. Time-Out: A pre-procedural Time-Out was completed immediately before starting the procedure and confirmed: Patient Identification, Site, Procedure, Patient Position and the Availability of Requisite Equipment. Clinical Indications: Acute post-operative pain management requested by the operative surgeon. Nerve Block Insertion Note Anes-nerve block: supraclavicular left Patient position: supine Skin prep: chlorhexidine Needle: 22 gauge, stimulating, insulated echogenic needle. Needle length: 80 mm Technique: ultrasound (in plane) Injectate: bupivacaine 0.5% with epi 5 mcg/ml (20cc) Observations: tolerated well Complications: none Procedure start time:: 1035 Procedure end time:: 1040
--- NOTE | 2022-05-08 13:49 | P.OP_ITS ---
Procedure Note - Detailed Date of Procedure 05/08/22 Pre-op Diagnosis left ulnar shaft fx Post-op Diagnosis Same Procedure Performed ORIF left distal ulnar shaft fracture. Surgeon Antonio Fajardo MD Anesthesia General Indications Unstable fracture with displacement. Findings Moderately distal. Specialized distal ulnar plate required. Placed on the flat lateral slightly volar aspect of the bone. Description of Procedure Preoperative antibiotics were given. A general anesthetic was administered. The arm was placed on a hand board. Well-padded tourniquet placed on the upper arm. The limb was prepped and draped in the usual sterile fashion. The limb was exsanguinated and the tourniquet inflated to 250 mmHg. A longitudinal incision was placed along the ulnar border of the ulna. The fracture was i dentified and minimal stripping performed to expose the bone. Anatomic reduction performed with temporary provisional pinning. Plate was fit and adjusted with biplanar fluoroscopy assistance. A standard 6 hole plate did not provide adequate fit and screw purchase distal. Therefore, the specialty distal ulna plate was used with the distal locking cluster. This required slight contouring. Compression screws were used except for locking screws in the distal holes as well as a single locking screw in the proximal fragment. The fracture was anatomically reduced with slight compression. The tourniquet was released. Meticulous hemostasis maintained. The wound closed in layers with 2- 0 Vicryl suture, 3-0 Monocryl suture, and 4-0 running Monocryl suture. Steri- Strips placed on the skin. Well-padded bulky dressing with ulnar gutter splint. Patient extubated and brought to the recovery room stable condition. There were no complications. Implants Accu Med distal ulna specially plate. Estimated Blood Loss 5 Drains No Pathology None sent Complications No immediate complications Condition Stable Disposition PACU [facility] Billing Surgery - Charge Forward: Surgery Billing
[2022-05-08 14:18] LABS: Glucose Point of Care 92 mg/dl (65-105)
== END 2022-05-08 14:40 | disposition home or self-care (01) ==
PROVIDERS: PCP Physician Assistant; Visit Provider Orthopaedic Surgery
PROC: (CPT 25575; principal; 2022-05-08 10:30)
DX: S52.202A Unspecified fracture of shaft of left ulna, initial encounter for closed fracture (principal); W01.190A Fall on same level from slipping, tripping and stumbling with subsequent striking against furniture, initial encounter; E11.9 Type 2 diabetes mellitus without complications; I10 Essential (primary) hypertension; F41.9 Anxiety disorder, unspecified; F32.A Depression, unspecified; E66.01 Morbid (severe) obesity due to excess calories; Z68.38 Body mass index [BMI] 38.0-38.9, adult; Z79.84 Long term (current) use of oral hypoglycemic drugs; Z79.82 Long term (current) use of aspirin; Z79.899 Other long term (current) drug therapy
CPT/HCPCS: 25545; 36415; 80048; 82948; 93005; 99199; A4565; A9270; C1713; J0690; J1100; J1885; J2250; J2405; J2704; J3010; J7120

== ENCOUNTER → 2022-05-17 10:52 | Outpatient (CLI) | payer OTHER, MEDICAID, SELFPAY ==
--- NOTE | ~2022-05-17 | US_ITS ---
US renal BI 05/17/2022 11:12 Procedure: Realtime transabdominal ultrasound of the kidneys and bladder. Indication: Elevated creatinine Comparison: No prior studies for comparison. Findings: Renal echotexture is normal bilaterally without hydronephrosis, contour deforming mass or r enal calculus. The right kidney measures 10.4 cm and left kidney measures 10.8 cm. Bladder is not we ll distended for evaluation. Impression: 1: Unremarkable renal ultrasound. No stones, masses or hydronephrosis. Reviewed, dictated and finalized at location A. Impression: 1: Unremarkable renal ultrasound. No stones, masses or hydronephrosis.
== END ==
PROVIDERS: PCP Physician Assistant; Visit Provider Physician Assistant
DX: R79.89 Other specified abnormal findings of blood chemistry (principal)
CPT/HCPCS: 76775

== ENCOUNTER 2022-07-05 11:03 | Outpatient (CLI) | payer OTHER, MEDICAID, SELFPAY ==
--- NOTE | ~2022-07-05 | MM_ITS ---
EXAMINATION: MM screening jet BI w kenia HISTORY: Screening TECHNIQUE: Craniocaudal and mediolateral oblique 3-D tomosynthesis images were obtained and synthetic 2-D images were generated. CAD analysis was submitted and interpreted. COMPARISON: Comparison to multiple prior studies sequentially, with oldest reviewed study dated 12/2014. BREAST PARENCHYMAL COMPOSITION: There are scattered areas of fibroglandular density. FINDINGS: There is no evidence of suspicious mass, calcification, or architectural distortion to sugg est malignancy in either breast. There has been no suspicious interval change. IMPRESSION: 1. No mammographic evidence of malignancy. 2. Recommend routine screening mammography in one year. BI-RADS Category 1: Negative Reviewed, dictated and finalized at location A. ET WORKER
== END 2022-07-05 11:04 | disposition home or self-care (01) ==
PROVIDERS: PCP Physician Assistant; Visit Provider Obstetrics & Gynecology
DX: Z12.31 Encounter for screening mammogram for malignant neoplasm of breast (principal)
CPT/HCPCS: 77063; 77067

== ENCOUNTER 2023-04-19 09:28 | Outpatient (CLI) | payer OTHER, MEDICAID, SELFPAY ==
[2023-04-19 10:45] LABS: Basophils Absolute Auto 0.1 K/mm3 (0.0-0.1); Basophils Percent Auto 0.7 % (0.2-1.2); Eosinophils Percent Auto 0.1 % (0-4.4); Hematocrit 40.2 % (37.0-47.0); Immature Granulocyte Absolute 0.01 K/mm3 (0.00-0.031); Immature Granulocyte Percent A 0.1 % (0-0.5); Lymphocytes Absolute Auto 2.22 K/mm3 (0.9-3.2); Lymphocytes Percent Auto 27.4 % (18.3-44.2); Mean Corpuscular HGB Conc 32.3 g/dl (32-36); Mean Corpuscular Volume 92.6 fl (80-100); Mean Platelet Volume 8.7 fl (7.4-10.4); Monocytes Absolute Auto 0.6 K/mm3 (0.1-0.6); Monocytes Percent Auto 7.9 % (2.6-8.5); Neutrophils Absolute Auto 5.2 K/mm3 (1.3-6.7); Neutrophils Percent Auto 63.8 % (45.5-73.1); Platelet Count Result 371 k/mm3 (150-375); Red Blood Count 4.34 M/mm3 (4.2-5.4); Red Cell Distribution Width 12.9 % (11.5-14.5); White Blood Count 8.1 K/mm3 (4.5-10.0)
[2023-04-19 11:00] LABS: Alanine Aminotransferase 21 U/L (6-35); Albumin Level 4.5 g/dL (3.5-5.1); Alkaline Phosphatase 89 U/L (38-126); Anion Gap 6 mmol/L (8-16); Aspartate Amino Transferase 31 U/L (14-36); Bilirubin,Total 0.6 mg/dL (0.2-1.3); Blood Urea Nitrogen 15 mg/dL (7-17); Calcium 8.9 mg/dL (8.4-10.2); Carbon Dioxide 30 mmol/L (22-30); Chloride 101 mmol/L (98-107); Estimated Glomerular Filt Rate 36; Glucose 83 mg/dL (65-110); Potassium 4.2 mmol/L (3.4-5.0); Sodium 137 mmol/L (137-145)
[2023-04-19 11:25] LABS: Thyroid Stimulating Hormone 0.528 uIU/mL (0.465-4.680)
[2023-04-22 04:44] LABS: Thyroid Peroxidase Antibodies <1 IU/mL (<9)
[2023-04-23 12:28] LABS: Testosterone Free 25.5 pg/mL (0.1-6.4); Testosterone Total 209 ng/dL (2-45)
[2023-04-24 06:34] LABS: FSH 22.3 mIU/mL (***); LH 12.5 mIU/mL (***); Triiodothyronine T3 Free 2.3 pg/mL (2.3-4.2)
[2023-04-29 01:36] LABS: Estradiol, Ultrasensitive 44 pg/mL
== END 2023-04-19 09:29 | disposition home or self-care (01) ==
DX: R53.83 Other fatigue (principal); L65.9 Nonscarring hair loss, unspecified; E05.90 Thyrotoxicosis, unspecified without thyrotoxic crisis or storm; R68.82 Decreased libido; R63.5 Abnormal weight gain; N95.1 Menopausal and female climacteric states
CPT/HCPCS: 36415; 80053; 82670; 83001; 83002; 84144; 84402; 84403; 84443; 84481; 85025; 86376; 86800

== ENCOUNTER 2023-07-25 12:40 | Outpatient (CLI) | payer OTHER, MEDICAID, SELFPAY ==
--- NOTE | ~2023-07-25 | XR_ITS ---
EXAMINATION: XR knee RT min 4V DATE: 07/25/2023 12:54 INDICATION: Unilateral primary osteoarthritis of the right knee TECHNIQUE: Weight bearing anteroposterior and [place], sunrise, and flexed lateral views of the rig ht knee were obtained COMPARISON: 04/09/2022 FINDINGS: Alignment is normal. No fracture. Marginal osteophytes in all 3 compartments of the right knee consi stent with tricompartmental osteoarthritis. The joint spaces appear relatively preserved in the arora lofemoral and lateral compartments. Interval progression of now moderate to severe joint space narrow ing in the medial compartment. No joint effusion/layering lipohemarthrosis. Soft tissues are unremark able. IMPRESSION: 1. Moderate to severe medial compartment predominant tricompartmental osteoarthritis at the right kne e. Reviewed, dictated and finalized at location A. AND SCENERY MAKER IMPRESSION: 1. Moderate to severe medial compartment predominant tricompartmental osteoarth ritis at the right knee.
== END 2023-07-25 12:41 | disposition home or self-care (01) ==
LOC: ANHIMG 12:42
PROVIDERS: PCP Physician Assistant; Visit Provider Orthopaedic Surgery
DX: M17.11 Unilateral primary osteoarthritis, right knee (principal)
CPT/HCPCS: 73564

== ENCOUNTER 2023-10-11 15:05 | Outpatient (CLI) | payer OTHER, MEDICAID, SELFPAY ==
--- NOTE | ~2023-10-11 | MM_ITS ---
EXAMINATION: MM screening jet BI w kenia HISTORY: Screening mammogram TECHNIQUE: Craniocaudal and mediolateral oblique 3-D tomosynthesis images were obtained and synthetic 2-D images were generated. CAD analysis was submitted and interpreted. COMPARISON: 07/05/2022, 01/31/2021 bilateral screening mammogram examinations BREAST PARENCHYMAL COMPOSITION: There are scattered areas of fibroglandular density. FINDINGS: There is no evidence of suspicious mass, calcification, or architectural distortion to sugg est malignancy in either breast. There has been no suspicious interval change. IMPRESSION: 1. No mammographic evidence of malignancy. 2. Recommend routine screening mammography in one year. BI-RADS Category 1: Negative Reviewed, dictated and finalized at location A.
== END 2023-10-11 15:06 | disposition home or self-care (01) ==
LOC: ANHIMG 15:08
PROVIDERS: PCP Physician Assistant; Visit Provider Obstetrics & Gynecology
DX: Z12.31 Encounter for screening mammogram for malignant neoplasm of breast (principal)
CPT/HCPCS: 77063; 77067

== ENCOUNTER 2023-12-17 08:20 | Outpatient (CLI) | payer OTHER, MEDICARE, MEDICAID, SELFPAY ==
--- NOTE | ~2023-12-17 | XR_ITS ---
Right Shoulder Technique: AP and scapular Y views were obtained. Clinical History: Pain Findings: No fracture or dislocation is seen. Osseous alignment is anatomic. The glenohumeral joint i s intact. There is mild AC joint degenerative change. Soft tissues are unremarkable. Impression: Mild AC joint degenerative change. Reviewed, dictated and finalized at [facility]. Impression: Mild AC joint degenerative change.
== END 2023-12-17 08:21 | disposition home or self-care (01) ==
LOC: ANHIMG 08:23
PROVIDERS: PCP Physician Assistant; Visit Provider Physician Assistant Surgical
DX: M19.011 Primary osteoarthritis, right shoulder (principal)
CPT/HCPCS: 73030

== ENCOUNTER 2024-01-20 08:06 | Outpatient (CLI) | payer OTHER, SELFPAY ==
[2024-01-20 09:10] LABS: Hematocrit 38.3 % (37.0-47.0); Hemoglobin 12.5 g/dL (12.0-15.0); Mean Corpuscular HGB Conc 32.6 g/dl (32-36); Mean Corpuscular Hemoglobin 30.8 pg (26-34); Mean Corpuscular Volume 94.3 fl (80-100); Mean Platelet Volume 9.1 fl (7.4-10.4); Platelet Count Result 367 k/mm3 (150-375); Red Blood Count 4.06 M/mm3 (4.2-5.4); Red Cell Distribution Width 13.3 % (11.5-14.5); White Blood Count 9.3 K/mm3 (4.5-10.0)
[2024-01-20 09:18] LABS: Anion Gap 9 mmol/L (4-12); Blood Urea Nitrogen 20 mg/dL (7-17); Calcium 8.9 mg/dL (8.4-10.2); Carbon Dioxide 28 mmol/L (22-30); Chloride 103 mmol/L (98-107); Estimated Glomerular Filt Rate 36; Glucose 97 mg/dL (65-110); Potassium 4.1 mmol/L (3.4-5.0); Sodium 140 mmol/L (137-145)
== END 2024-01-20 08:07 | disposition home or self-care (01) ==
LOC: ANHSURGERY 08:09
PROVIDERS: Anesthesiology; PCP Physician Assistant; Visit Provider Obstetrics & Gynecology
DX: Z01.818 Encounter for other preprocedural examination (principal); N93.9 Abnormal uterine and vaginal bleeding, unspecified; E11.9 Type 2 diabetes mellitus without complications
CPT/HCPCS: 36415; 80048; 85027

== ENCOUNTER 2024-01-23 01:43 | Day surgery (SDC) | payer OTHER, SELFPAY ==
--- NOTE | 2024-01-13 16:11 | SUR.PREOP ---
Report to the Outpatient Waiting Room, entrance under the green pavilion located off [facility], at time 0900 on date 01/23/24. Planned Procedure Time: 1100. Time changes happen often and if your time is changed the preop area will call you the afternoon before. - You and your visitor will be asked to self-screen and do not enter if you have any COVID symptoms. - A mask is optional within the hospital at this time. Patients may have clear liquids (water, carbonated beverages, clear teas, apple juice) until 3 hours prior to surgery with a maximum of 20 ounces. - No food from midnight until time of surgery - Infants may have breast milk until 4 hours before surgery, infant formula 6 hours prior to surgery. - Children will be allowed to drink immediately following surgery. If applicable, please bring a bottle or sippy cup to assist with drinking. Juice, water, soda, and popsicles are readily available. For infants on formula, please bring formula the day of surgery. Pacifiers are allowed. Take the following medications with a SIP of water the morning of surgery: ALPRAZOLAM & BUPROPION DO NOT STOP ANY OF YOUR OTHER PRESCRIPTION MEDICATIONS PRIOR TO SURGERY ?EXCEPT THE FOLLOWING Medications to discontinue per physician OZEMPIC Date to take last dose 01/12/[address] SERRANO IN REGARDS TO ASPIRIN Please no make-up, nail albanian, hairspray, perfume, deodorant, or body powder the day of surgery. No jewelry (including any body piercings) or valuables the day of surgery, leave them at home. Please take a shower or bath the night before, or the morning of, surgery with an antibacterial soap. Wear comfortable, loose fitting clothing. Children are encouraged to wear pajamas. - Jewelry must be removed prior to entering the operating room. Rings and piercings that are not removed may be cut off. - The hospital will not accept responsibility for valuables. - Please leave all valuables, including medications, at home the day of surgery. If you are going home after surgery, a licensed driver utility worker must drive you home. - NO public transportation without another adult if you receive anesthesia. - We recommend that an adult stay with you for 24 hours following discharge. - We also recommend that you do not drive, make important decision, drink alcoholic beverages, or take any drugs that were not prescribed by your health care provider for at least 24 hours after your discharge time. For Pediatric surgeries, we recommend two adults accompany the child home. Follow any additional instructions given to you from your surgeon. If you or anyone in your household have experienced Covid symptoms in the past week, please notify your surgeon or the nurse liaison at the phone number below for possible testing. Telephone instructions given to AZAR COTTO and asked if any additional questions and then verbalized understanding. Patient advised to call surgeon office or pre surgery nurse liaison [phone] if any additional questions.
[2024-01-13 16:22] VITALS: BMI 38.7
[2024-01-23 07:47] LABS: Glucose Point of Care 92 mg/dl (65-105)
[2024-01-23 08:05] VITALS: BP 126/64; PULSE 78; RESP 16; TEMP 36.4; O2SAT 99; BMI 37.7
[2024-01-23] MEDS: ACETAMINOPHEN 500 MG TABLET 1000 MG PO (08:11)
[2024-01-23] MEDS: LACTATED RINGERS 1,000 ML 30 ML IV CONT (08:15)
--- NOTE | 2024-01-23 08:33 | WPDANESEPPF ---
Anes - Initial Pre Proc Eval Procedure: Operation Date: 01/23/24 09:30 Proposed Procedures p Hysteroscopy Dilation and Curettage - Savage Saba MD Date/Time: 01/23/24 08:33 Surgeon: Savage Saba MD Pre Op Diagnosis: post Menopausal Bleeding Patient Data Age: 58 Gender: F Height: 1.7 m Weight: 109.3 kg Last Vital Signs Temp 97.6 F 01/23/24 08:05 Pulse 78 01/23/24 08:05 Resp 16 01/23/24 08:05 BP 126/64 01/23/24 08:05 Pulse Ox 99 01/23/24 08:05 Allergies Allergy/AdvReac Type Severity Reaction Status Date / Time cariprazine [From [facility]] Allergy Unknown SUICIDAL Verified 01/13/24 16:19 HALLUCINATIONS Home Medications Medication Instructions Recorded Confirmed Type alprazolam 0.5 mg tablet 0.5 mg PO DIRECTED PRN Anxiety 09/07/19 01/13/24 History losartan 50 mg-hydrochlorothiazide 1 tablet PO DAILY 09/07/19 01/13/24 History 12.5 mg tablet bupropion HCl 150 mg 24 hr tablet, 150 mg PO QAM 04/09/22 01/13/24 History extended release progesterone micronized 200 mg 200 mg PO QHS 90 days #90 caps 11/26/23 01/13/24 Rx capsule (Prometrium) aspirin 325 mg tablet 325 mg PO DAILY 01/13/24 01/13/24 History atorvastatin 10 mg tablet 10 mg PO DAILY 01/13/24 01/13/24 History semaglutide 0.25 mg or 0.5 mg (2 0.5 mg subcut WEEKLY 01/13/24 01/13/24 History mg/3 mL) subcutaneous pen injector (Ozempic) Laboratory Tests 01/23/24 07:45 POC Capillary Glucose 92 mg/dl (65-105) Patient hx anesthesia problems: none Family hx anesthesia problems: none Results Review: All pre-operative results and documents have been reviewed as part of the pre-operative evaluation. [facility] Past Medical History Medical History Abnormal vaginal bleeding Abscess of urethra and/or periurethral region Anxiety Arthritis Bronchitis Cardiac arrhythmia Depression Diabetes type 2, controlled History of patent ductus arteriosus (~1972) Hypertension Mitral valve prolapse VALVE SURGERY 1973- CHILD FOR MITRAL VALVE PROLAPSE, FOLLOWS WITH DR. HOOKER Morbid obesity with BMI of 40.0-44.9, adult Palpitation Screening mammogram, encounter for Skin tag of vulva Traumatic tear of left rotator cuff Vertigo Surgical History Surgical History History of colonoscopy (01/27/16) sigmoid diverticulitis History of foot surgery both feet History of gynecological procedure (11/01/23) skin tag removal vulvar / Benign History of mitral valve repair 1973 for MVP History of neck surgery (~1979) lymphectomy--benign History of open reduction and internal fixation (ORIF) procedure (~05/08/22) Left Ulnar Shaft History of right knee surgery (~2003) History of rotator cuff surgery left shoulder History of stress incontinence procedure using tension free vaginal tape (04/14/15) History of tonsillectomy (~1971) History of tubal ligation (12/20/00) Family History Family History Father Family history of malignant neoplasm Grandparent Family history of lung cancer Social History Social History Smoking status: Never smoker Second hand tobacco smoke exposure: No Alcohol intake: never Substance use: never Substance use type: does not use Do You Feel Safe in your Home?: Yes Lack of Transportation: No Lack of Food: Never True Current Housing: I Have Housing Concerned About Future Housing: No Difficulty Paying Gas/Electric Bills: YES Difficulty Paying for Meds: YES Currently Unemployed: No Education: Associate Degree Living arrangements: with family Gender identity (if verbalized by the patient): Female Sexual Orientation (if Verbalized by the Patient): Straight or Heterosexual Spiritual care concerns: No Anes
--- NOTE | 2024-01-23 09:00 | PM.IMHP ---
H&P: HPI History of Present Illness Date/Time: 01/23/24 09:00 58-year-old female presents for evaluation of postmenopausal bleeding. Is on estrogen and progesterone and was doing well until a few months ago when she began have some spotting, which increased to bleeding. Ultrasound shows slightly thickened endometrial cavity is 6mm. Presents today for hysteroscopic exam and tissue sampling. Chief Complaint: Postmenopausal bleeding Review of Systems Review of Systems: All systems reviewed & are unremarkable except as noted in HPI and below PMFSH Past Medical History Medical History Abnormal vaginal bleeding Abscess of urethra and/or periurethral region Anxiety Arthritis Bronchitis Cardiac arrhythmia Depression Diabetes type 2, controlled History of patent ductus arteriosus (~1972) Hypertension Mitral valve prolapse VALVE SURGERY 1973- CHILD FOR MITRAL VALVE PROLAPSE, FOLLOWS WITH DR. HOOKER Morbid obesity with BMI of 40.0-44.9, adult Palpitation Screening mammogram, encounter for Skin tag of vulva Traumatic tear of left rotator cuff Vertigo Surgical History Surgical History History of colonoscopy (01/27/16) sigmoid diverticulitis History of foot surgery both feet History of gynecological procedure (11/01/23) skin tag removal vulvar / Benign History of mitral valve repair 1973 for MVP History of neck surgery (~1979) lymphectomy--benign History of open reduction and internal fixation (ORIF) procedure (~05/08/22) Left Ulnar Shaft History of right knee surgery (~2003) History of rotator cuff surgery left shoulder History of stress incontinence procedure using tension free vaginal tape (04/14/15) History of tonsillectomy (~1971) History of tubal ligation (12/20/00) Family History Family History Father Family history of malignant neoplasm Grandparent Family history of lung cancer Social History Social History Smoking status: Never smoker Second hand tobacco smoke exposure: No Alcohol intake: never Substance use: never Substance use type: does not use Do You Feel Safe in your Home?: Yes Lack of Transportation: No Lack of Food: Never True Current Housing: I Have Housing Concerned About Future Housing: No Difficulty Paying Gas/Electric Bills: YES Difficulty Paying for Meds: YES Currently Unemployed: No Education: Associate Degree Living arrangements: with family Gender identity (if verbalized by the patient): Female Sexual Orientation (if Verbalized by the Patient): Straight or Heterosexual Spiritual care concerns: No Meds Home Medications and Allergies Home Medications Medication Instructions Recorded Confirmed Type alprazolam 0.5 mg tablet 0.5 mg PO DIRECTED PRN Anxiety 09/07/19 01/13/24 History losartan 50 mg-hydrochlorothiazide 1 tablet PO DAILY 09/07/19 01/13/24 History 12.5 mg tablet bupropion HCl 150 mg 24 hr tablet, 150 mg PO QAM 04/09/22 01/13/24 History extended release progesterone micronized 200 mg 200 mg PO QHS 90 days #90 caps 11/26/23 01/13/24 Rx capsule (Prometrium) aspirin 325 mg tablet 325 mg PO DAILY 01/13/24 01/13/24 History atorvastatin 10 mg tablet 10 mg PO DAILY 01/13/24 01/13/24 History semaglutide 0.25 mg or 0.5 mg (2 0.5 mg subcut WEEKLY 01/13/24 01/13/24 History mg/3 mL) subcutaneous pen injector (Ozempic) Allergies Allergy/AdvReac Type Severity Reaction Status Date / Time cariprazine [From [facility]] Allergy Unknown SUICIDAL Verified 01/13/24 16:19 HALLUCINATIONS Vital Signs Vital Signs - 24 hr 01/23/24 08:05 Temperature 97.6 F Pulse Rate 78 Respiratory Rate 16 Blood Pressure 126/64 Pulse Oximetry 99 Exam Resp: Effort & Inspection: normal respiratory effor
--- NOTE | 2024-01-23 09:05 | WPDHPUPDATE1 ---
History and Physical Update Update Date/Time: 01/23/24 09:05 History and Physical has been reviewed, including an updated exam of the patient. There are NO changes in the patient's condition. Risks, benefits, and alternatives have been discussed and questions answered. Patient agrees to proceed with procedure.
[2024-01-23 10:03] VITALS: BP 92/55; PULSE 82; RESP 14; O2SAT 95
[2024-01-23 10:30] VITALS: BP 117/59; PULSE 77; RESP 16
--- NOTE | 2024-01-23 10:30 | W.PM.PROC2 ---
Procedure Note - Detailed Date of Procedure 01/23/24 Pre-op Diagnosis post Menopausal Bleeding Post-op Diagnosis Same Procedure Performed Hysteroscopy with uterine curettings Surgeon Savage Saba MD Anesthesia MAC Findings atrophic endometrial cavity. Description of Procedure Patient prepped draped usual manner for this procedure. Cervix dilated to allow the hysteroscope to be placed. Once this was undertaken curettings were obtained of it we atrophic cavity. There were no polyps fibroids or any other evidence of anatomic abnormality or hyperplasia. Patient was sent to the recovery room in stable condition. Estimated Blood Loss 10 Drains No Packing No Pathology Yes Complications No immediate complications Condition Stable Disposition PACU [facility] Billing Surgery - Charge Forward: Surgery Billing
[2024-01-23 11:00] VITALS: BP 111/89; PULSE 66; RESP 16
== END 2024-01-23 11:17 | disposition home or self-care (01) ==
PROVIDERS: PCP Physician Assistant; Visit Provider Obstetrics & Gynecology
PROC: 0U5B8ZZ Destruction of Endometrium, Via Natural or Artificial Opening Endoscopic (ICD-10-PCS; CPT 58563; principal; 2024-01-23 09:30)
DX: N95.0 Postmenopausal bleeding (principal); N84.0 Polyp of corpus uteri; I10 Essential (primary) hypertension; E11.9 Type 2 diabetes mellitus without complications; F41.9 Anxiety disorder, unspecified; F32.A Depression, unspecified; E66.9 Obesity, unspecified; Z68.37 Body mass index [BMI] 37.0-37.9, adult; Z79.85 Long-term (current) use of injectable non-insulin antidiabetic drugs; Z79.82 Long term (current) use of aspirin; Z79.890 Hormone replacement therapy
CPT/HCPCS: 58558; 36415; 80048; 82948; 85027; 88305; A9270; J1100; J2250; J2405; J2704; J3010; J7120

== ENCOUNTER 2024-02-12 12:03 | Outpatient (CLI) | payer OTHER, SELFPAY ==
[2024-02-12 12:43] LABS: Uric Acid 7.5 mg/dL (2.5-7.5)
== END 2024-02-12 12:04 | disposition home or self-care (01) ==
PROVIDERS: PCP Physician Assistant; Visit Provider Internal Medicine Nephrology
DX: M10.9 Gout, unspecified (principal)
CPT/HCPCS: 36415; 84550

== ENCOUNTER 2024-03-06 12:07 | Outpatient (CLI) | payer OTHER, SELFPAY ==
--- NOTE | ~2024-03-06 | XR_ITS ---
[id number] Ordering provider: Herber Scherer History: . No injury neck and lbp . Comparison: None. FINDINGS: VERTEBRAL BODIES: Minimal anterolisthesis at the level of C3-C4. Degenerative changes of the spine. N ormal height and alignment. No visible fracture or subluxation. The dens is intact. DISK SPACES: Multilevel degenerative disc disease involving the disc spaces C3-C4, C4-C5, C5-C6 and C 6-C7. Multilevel facet joint disease. Multilevel uncovertebral joint osteoarthritic changes. PARASPINOUS SOFT TISSUES: No prevertebral soft tissue swelling. IMPRESSION: No acute osseous abnormality cervical spine. Multilevel degenerative disc disease. Reviewed, dictated and finalized at location A.
--- NOTE | ~2024-03-06 | XR_ITS ---
3 VIEWS LUMBAR SPINE Ordering provider: Herber Scherer History: . No injury neck and lbp . Comparison: July 05, 2017 FINDINGS: VERTEBRAL BODIES:Dextroscoliosis. Degenerative changes of the spine. Minimal retrolisthesis at the le ibeth of L3-L4. No visible fracture or subluxation. DISK SPACES: Narrowing of the disc spaces L2-L3, L3-L4 and L4-L5. Multilevel facet joint disease. SOFT TISSUES: Normal. IMPRESSION: No acute osseous abnormality lumbar spine. Multilevel degenerative disc disease. Reviewed, dictated and finalized at location A.
== END 2024-03-06 12:08 ==
PROVIDERS: PCP Physician Assistant
DX: M99.01 Segmental and somatic dysfunction of cervical region (principal); M99.03 Segmental and somatic dysfunction of lumbar region; M51.36 Other intervertebral disc degeneration, lumbar region; M50.30 Other cervical disc degeneration, unspecified cervical region
CPT/HCPCS: 72040; 72100

== ENCOUNTER 2024-04-17 11:15 | Outpatient (RCR) | payer OTHER, SELFPAY ==
--- NOTE | 2024-02-01 10:14 | PTOPEVAL1 ---
Assessment and note entered by Brianna Wahl, PT Evaluation Information Assessment Status Evaluation ICD-10 Condition Codes (PT) M25.511 Onset a couple months Subjective Information Pt reports pain to R shoulder occasional numbness to hands . Pain is intermittent, feels more of weakness versus sharp pains. states she sleeps on her belly with R arm outstretched overhead, she oftentimes feel stiff in the morning, or sometimes wakes up in the middle of her sleep due to pain, it is relieved by change in position. Reaching overhead and carrying objects makes symptoms worse at this time. She also reports received a steroid injection to R shoulder last 01/10/2024. Reported Pain Level Pain Score 0: Self Report Assessment PT Clinical Summary Pt is a 58 yo female who presents to therapy with c/o R shoulder weakness and pain which is aggravated with prolonged position or reaching overhead. Recent X-Rays and Ortho visit results indicate a possible calcific tendinitis or bone spur off the R acromion; she also has h/o Traumatic tear of L rotator cuff. Pt demos cervical ROM deficits, WNL shoulder ROM, only able to complete 50% ROM for L shoulder, B shoulder weakness and moderate soft tissue tightness/ shortening around cervical and shoulder area. Pt will benefit from skilled PT to reduce pain, improve strength and functional mobility. Plan of Care Interventions Electrical Stimulation,Hot Pack/Cold Pack,Manual Therapy,Mechanical Traction,Neuro Re-education, Patient/Caregiver Education,Therapeutic Activities, Therapeutic Exercise,Ultrasound Other Interventions IASTM PT Services Indicated Yes Treatment Frequency and 2x/wk x 6 visits Duration These treatments will address the objective and functional deficits as defined above. The patient will be advanced safely and appropriately in order for the patient to progress towards his/her prior level of function. Additional exercises will be introduced and as well as a comprehensive home exercise program upon discharge, if needed, ?to ensure carryover of functional gains achieved in the clinic. This treatment plan has been reviewed and agreement upon by the patient.
--- NOTE | 2024-03-19 14:14 | PCPTNOTE ---
pt came 30 minutes early to appt today. Stated she could not stay until appt time and canceled appt.
--- NOTE | 2024-03-26 15:54 | OPREHPOC ---
Outpatient Therapy Plan of Care This is a Multidisciplinary Plan of Care that may contain components documented by all disciplines (PT, OT, and ST.) PT Problem 1 PT Problem #1 Knowledge Deficit PT Goal 1 Goal / Goal Update Pt will demo cervical and B shoulder stabilization and strength HEPs indep Target Visit 6 Progress Met PT Problem 2 PT Problem #2 Impaired Functional Mobil PT Goal 1 Goal / Goal Update Pt will perform inferior and superior Apley Scratch test bilaterally without pain and discomfort. Target Visit 12 Progress Partially Met PT Problem 3 PT Problem #3 Impaired Range of Motion PT Goal 1 Goal / Goal Update pt will demo WNL of cervical ROM Target Visit 6 Progress Met PT Problem 4 PT Problem #4 Impaired Strength PT Goal 1 Goal / Goal Update Pt will demo 5/5 shoulder strength Target Visit 12 Progress Not Met PT Problem 5 PT Problem #5 Impaired Functional Mobil PT Goal 1 Goal / Goal Update Pt will improve Quick Dash score to 10% or less indicating improved function Target Visit 12 Progress Not Met
--- NOTE | 2024-03-26 15:54 | PTOPPROG ---
Assessment and note entered by Jakob Castillo, PT Evaluation Information Assessment Status Progress ICD-10 Condition Codes (PT) M25.511 Onset a couple months Subjective Information Reports that she has been having pain for quite a while and they still hurt considerably. She has been having a lot more pain on her left shoulder at this time. 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 Assessment PT Clinical Summary Patient demonstrates excellent shoulder ROM at this time with pain only at end range. At this point strength and posturing are greater concern. Pain is not consistent with cervical radiculopathy . 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 Plan of Care Interventions Electrical Stimulation,Hot Pack/Cold Pack,Manual Therapy,Mechanical Traction,Neuro Re-education, Patient/Caregiver Educati,Therapeutic Activities, Therapeutic Exercise,Ultrasound Other Interventions IASTM PT Services Indicated Yes Treatment Frequency and 1-2x/week for 6 weeks Duration These treatments will address the objective and functional deficits as defined above. The patient will be advanced safely and appropriately in order for the patient to progress towards his/her prior level of function. Additional exercises will be introduced and as well as a comprehensive home exercise program upon discharge, if needed, ?to ensure carryover of functional gains achieved in the clinic. This treatment plan has been reviewed and agreement upon by the patient.
--- NOTE | 2024-04-23 10:36 | PCPTNOTE ---
Pt called to cancel her appointment today as she has to be at work at that time.
--- NOTE | 2024-04-28 11:35 | PCPTNOTE ---
This treatment is being continued on visit number [id number]. Please see documentation on both accounts to view progress. Completed interventions, outcomes, and problems have been marked as Inactive to facilitate the copying of the Care plan routine for recurring accounts.
== END 2024-04-28 11:07 | disposition home or self-care (01) ==
LOC: ANHPT 11:15
PROVIDERS: PCP Physician Assistant; Visit Provider Physician Assistant Surgical
DX: M25.811 Other specified joint disorders, right shoulder (principal); M75.31 Calcific tendinitis of right shoulder
CPT/HCPCS: 97014; 97110; 97140; 97161; 97530; G0283

== ENCOUNTER 2024-05-01 11:14 | Outpatient (RCR) | payer OTHER, SELFPAY ==
--- NOTE | 2024-04-28 11:36 | PCPTNOTE ---
This treatment is being continued from visit number [id number] Please see documentation on both accounts to view progress. Completed interventions, outcomes, and problems have been marked as Inactive to facilitate the copying of the Care plan routine for recurring accounts.
--- NOTE | 2024-05-01 11:43 | PTOPDC ---
Assessment and note entered by Rubi Soria, PT Discharge Report Assessment Status Discharge ICD-10 Condition Codes (PT) M25.511 Onset a couple months Subjective Information L shoulder is still hurting and weak; R shoulder is good; have back and knee pain also; doing the exercises; see the dr in 2 weeks; Reported Pain Level Pain Score Self Report Additional Pain Score Comments pain range in the past week 0-5/10; posterior L shoulder- sharp pain; no neck pain-- was stiff but stretching it; increase pain: lifting, moving arm back decrease pain: arm at her side, not use arm; ibuprofen, not using heat/ice- instruct PRN use; is able to sleep through the night; sleep prone with arm overhead R shoulder has been doing OK; using it without any troubles;have back and knee pain also Assessment PT Clinical Summary Saaida has received 10 PT sessions from January 30 to today. With today's assessment: L shoulder pain is now 0- 5/10; self assessment Quick DASH functional score of 41% limitation in activity level; AROM is WNL, with abduction most painful; decreased strength of shoulder to gross 4 to 4-/5, except ER is 3/5. She has been educated on HEP and posture. The goals were partially met. Discharge PT, she is to continue with her HEP and has follow up appt with in 2 weeks. Plan of Care PT Services Indicated No
== END 2024-05-01 12:58 | disposition home or self-care (01) ==
LOC: ANHPT 11:14
PROVIDERS: PCP Physician Assistant; Visit Provider Physician Assistant Surgical
DX: M25.811 Other specified joint disorders, right shoulder (principal); M75.31 Calcific tendinitis of right shoulder; S46.012A Strain of muscle(s) and tendon(s) of the rotator cuff of left shoulder, initial encounter
CPT/HCPCS: 97110; 97530

== ENCOUNTER 2024-06-04 06:41 | Outpatient (CLI) | payer OTHER, SELFPAY ==
--- NOTE | ~2024-06-04 | MR_ITS ---
MRI of the lumbar spine Clinical History: Radiculopathy Technique: Axial T2-weighted images, and sagittal T1-weighted, T2-weighted, and T2 fat-sat images wer e acquired. Findings: 8 mm retrolisthesis of L3 over L4 noted. 3 mm retrolisthesis of L2 over L3 noted. No acute fracture seen. There are reactive Modic marrow changes about the L3-L4 disc space. No suspicious bone marrow signal abnormality seen. At L1-L2, there is no disc bulge or herniation. There is moderate facet arthropathy. No central canal stenosis or neural foraminal narrowing. At L2-L3, there is severe degenerative disc narrowing. There is diffuse disc bulge with moderate face t arthropathy. No central canal stenosis. There is moderate right neural foraminal narrowing. Left ne ural foramen preserved. At L3-L4, there is advanced degenerative distended. There is diffuse disc bulge, with moderate to adv anced facet arthropathy. There is left lateral recess stenosis. There is severe left neural foraminal narrowing. Right neural foramen preserved. At L4-L5, there is advanced degenerative disc narrowing. There is diffuse disc bulge and severe facet arthropathy. There is no ethan central canal stenosis. There is moderate to advanced left neural for aminal narrowing. There is minimal right neural foraminal narrowing. At L5-S1, there is diffuse disc bulge with severe facet arthropathy. No central canal stenosis. There is moderate right neural foraminal narrowing. Left neural foramen preserved. Paravertebral soft tissues are unremarkable. Impression: Moderate degenerative spondylosis overall, as detailed above. 8 mm retrolisthesis of L3 over L4. 3 mm retrolisthesis of L2 over L3. Reviewed, dictated and finalized at [facility]. SHAPER Impression: Moderate degenerative spondylosis overall, as detailed above. 8 mm retrolisthesis of L3 over L4. 3 mm retrolisthesis of L2 over L3.
== END 2024-06-04 06:42 | disposition home or self-care (01) ==
PROVIDERS: PCP Physician Assistant; Visit Provider Physician Assistant
DX: M47.896 Other spondylosis, lumbar region (principal); M43.16 Spondylolisthesis, lumbar region
CPT/HCPCS: 72148

== ENCOUNTER 2024-10-01 14:38 | Outpatient (CLI) | payer OTHER, SELFPAY ==
--- NOTE | ~2024-10-01 | XR_ITS ---
XR knee RT min 4V Ordering provider: Antonio Fajardo MD History: . M17.11 - Unilateral primary osteoarthritis, right knee . Comparison: July 25, 2023 FINDINGS: BONES: No acute fracture or dislocation. JOINT SPACES: Severe narrowing of the medial compartment with marginal osteophytes. SOFT TISSUES: Normal. IMPRESSION: No acute osseous abnormality right knee. Severe osteoarthritic changes. Reviewed, dictated and finalized at location A.
--- OUTSIDE RECORDS SUMMARY | 2024-10-01 15:03 | XMS_ITS | Data Portability ---
Author Organization [facility] [place] Address [address] [place] [address] Care Team Providers Care Stock Receiver Name Role Phone JOANNE RUSH Primary Care Provider Unavailab le Assessment No assessment recorded. Plan of Treatment Reminders Order Date Submit Date Provider Last Modified By Organization Details Last Modified Time Details Appointments ANY 15 2024 01:30P M OSVALDO Kline Not available Not available Not available Lab HbA1c (hemoglob in A1c), blood 2023 024 MAEVE Larry, [address], [place], [address], 05/21/2024 03:37:09 CBC w/ auto diff 2023 024 MAEVEMILO Larry, [address], [place], [address], 05/21/2024 03:37:10 CMP, serum or plasma 2023 024 MAEVE Larry, [address], [place], [address], 05/21/2024 03:37:07 vitamin B12 + folate, serum or blood 2023 024 MAEVE Larry, [address], [place], [address], 05/21/2024 03:37:08 TSH + free T4, serum 2023 024 MAEVE Larry, [address], [place], [address], 05/21/2024 03:37:05 lipid panel, serum 2023 024 MAEVE Larry, [address], [place], [address], 05/21/2024 03:37:06 HbA1c (hemoglob in A1c), blood 2023 024 MAEVE Larry, [address], [place], [address], 11/27/2023 03:37:23 CBC w/ auto diff 2023 024 MAEVE Larry, [address], [place], [address], 11/27/2023 03:37:24 CMP, serum or plasma 2023 024 MAEVE Larry, [address], [place], [address], 11/27/2023 03:37:22 vitamin B12 + folate, serum or blood 2023 024 MAEVE Larry, [address], [place], [address], 11/27/2023 03:37:23 TSH + free T4, serum 2023 024 MAEVE Larry, [address], [place], [address], 11/27/2023 03:37:21 lipid panel, serum 2023 024 MAEVE Larry, [address], [place], [address], 11/27/2023 03:37:22 Referral None recorded. Procedures None recorded. Surgeries None recorded. Imaging MRI, lumbar spine, w/o contrast [address] (Imaging), [address] [place] [address] [address], [place], [address], 06/04/2024 10:19:26 Medication Orders Ozempic 1 mg/dose (4 mg/3 mL) subcutane ous pen injector 2023 [facility]armacy #[id number], [address] [place] [address], [address], 05/15/2024 16:16:35 methocarb hari 750 mg tablet 2023 [facility]armacy #[id number], [address] [place] [address], [address], 05/15/2024 16:20:16 alprazola m 0.5 mg tablet 2023 [facility] #[id number], [address] [place] [address], [address], 10/31/2023 16:35:41 Patient TargetsNo targets recorded. Patient Instructions Encounter Date Encounter Id Patient Instructions Last Modified By Organization Details Last Modified Time 05/15/2024 [id number] A healthy lifestyle: care instructions Not available 05/15/2024 16:15:56 09/01/2024 [id number] A healthy lifestyle: care instructions Not available 09/01/2024 11:30:38 Reason for Referral None Reported. Results Created Date Observation Date Name Description Value Unit Range Abnormal Flag Note LastModifiedBy Organization Detail LastModifiedTime 11/26/1911/27/2023 TSH+F REE T4 TSH 0.668 uIU/m L 0.450- 4.500 Not Available [facility] ([facility]) [address] [facility], [place], [address], 11/27/2023 03:37:21 11/26/1911/27/2023 TSH+F REE T4 T4,free(dire ct) 1.24 NG/dL 0.82-1 .77 Not Available [facility] ([facility]) [address] [facility], [place], [address], 11/27/2023 03:37:21 11/26/19 24 11/27/2023 LIPID PANEL cholesterol, total 183 mg/dL 100-19 9 Not Available [facility] ([facility]) [address] [facility], [place], [address], 11/27/2023 03:37:21 11/26/19 24 11/27/2023 LIPID PANEL triglyceride s 202 mg/dL 0-149 above high normal Not Available [facility] ([facility]) [address] [facility], [place], [address], 11/27/2023 03:37:21 11/26/19 24 11/27/2023 LIPID PANEL HDL cholesterol 47 mg/dL >39 Not Available [facility] ([facility]) [address] [facility], [place], [address], 11/27/2023 03:37:21 11/26/19 24 11/27/2023 LIPID PANEL VLDL cholesterol temitope 35 mg/dL 5-40 Not Available [facility] ([facility]) [address] [facility], [place], [address], 11/27/2023 03:37:21 11/26/19 24 11/27/2023 LIPID PANEL LDL chol calc ([facility]) 101 mg/dL 0-99 above high normal Not Available [facility] ([facility]) [address] [facility], [place], [address], 11/27/2023 03:37:21 11/26/19 24 11/27/2023 COMP. METAB OLIC PANEL (14) glucose 108 mg/dL 70-99 above high normal Not Available [facility] ([facility]) [address] [facility], [place], [address], 11/27/2023 03:37:22 11/26/19 24 11/27/2023 COMP. METAB OLIC PANEL (14) BUN 19 mg/dL 6-24 Not Available [facility] ([facility]) [address] [place], [address], 11/27/2023 03:37:22 11/26/19 24 11/27/2023 COMP. METAB OLIC PANEL (14) creatinine 1.49 mg/dL 0.57-1 .00 above high normal Not Available [facility] ([facility]) [address] [place], [address], 11/27/2023 03:37:22 11/26/19 24 11/27/2023 COMP. METAB OLIC PANEL (14) eGFR 40 mL/mi n/1.7 3 >59 below low normal Not Available [facility] ([facility]) [address] [place], [address], 11/27/2023 03:37:22 11/26/19 24 11/27/2023 COMP. METAB OLIC PANEL (14) BUN/creatini ne ratio 13 9-23 Not Available [facility] ([facility]) [address] [facility] [place], [address], 11/27/2023 03:37:22 11/26/19 24 11/27/2023 COMP. METAB OLIC PANEL (14) sodium 138 mmol/ L 134-14 4 Not Available [facility] ([facility]) [address] [facility] [place], [address], 11/27/2023 03:37:22 11/26/19 24 11/27/2023 COMP. METAB OLIC PANEL (14) potassium 4.4 mmol/ L 3.5-5. 2 Not Available [facility] ([place] [facility]) [address] [facility] [place], [address], 11/27/2023 03:37:22 11/26/19 24 11/27/2023 COMP. METAB OLIC PANEL (14) chloride 101 mmol/ L 96-106 Not Available [facility] ([place] [facility]) [address] [facility] [place], [address], 11/27/2023 03:37:22 11/26/19 24 11/27/2023 COMP. METAB OLIC PANEL (14) carbon dioxide, total 24 mmol/ L 20 Not Available [facility] ([place] [facility]) [address] [facility], [place], [address], 11/27/2023 03:37:22 11/26/19 24 11/27/2023 COMP. METAB OLIC PANEL (14) calcium 9.2 mg/dL 8.7-10 .2 Not Available [facility] ([place] [facility]) [address], [place], [address], 11/27/2023 03:37:22 11/26/19 24 11/27/2023 COMP. METAB OLIC PANEL (14) protein, total 7.1 g/dL 6.0-8. 5 Not Available [facility] ([place] [facility]) [address] [facility], [place], [address], 11/27/2023 03:37:22 11/26/19 24 11/27/2023 COMP. METAB OLIC PANEL (14) albumin 4.2 g/dL 3.8-4. 9 Not Available [facility] ([place] [facility]) [address] [facility], [place], [address], 11/27/2023 03:37:22 11/26/19 24 11/27/2023 COMP. METAB OLIC PANEL (14) globulin, total 2.9 g/dL 1.5-4. 5 Not Available [facility] ([place] [facility]) [address] [facility], [place], [address], 11/27/2023 03:37:22 11/26/19 24 11/27/2023 COMP. METAB OLIC PANEL (14) A/G ratio 1.4 1.2-2. 2 Not Available [facility] ([place] [facility]) [address] [facility], [place], [address], 11/27/2023 03:37:22 11/26/19 24 11/27/2023 COMP. METAB OLIC PANEL (14) bilirubin, total 0.4 mg/dL 0.0-1. 2 Not Available [facility] ([facility]) [address] [facility] [place], [address], 11/27/2023 03:37:22 11/26/19 24 11/27/2023 COMP. METAB OLIC PANEL (14) alkaline phosphatase 98 IU/L 44-121 Not Available [facility] ([facility]) [address] [facility] [place], [address], 11/27/2023 03:37:22 11/26/19 24 11/27/2023 COMP. METAB OLIC PANEL (14) AST (SGOT) 21 IU/L 0-40 Not Available [facility] ([facility]) [address] [facility] [place], [address], 11/27/2023 03:37:22 11/26/19 24 11/27/2023 COMP. METAB OLIC PANEL (14) ALT (SGPT) 18 IU/L 0-32 Not Available [facility] ([facility]) [address] [place], [address], 11/27/2023 03:37:22 11/26/19 24 11/27/2023 VITAM IN B12 AND FOLAT E vitamin B12 305 pg/mL 232-12 45 Not Available [facility] ([facility]) [address] [place], [address], 11/27/2023 03:37:23 11/26/19 24 11/27/2023 VITAM IN B12 AND FOLAT E folate (folic acid), serum 6.2 NG/mL >3.0 A serum folat e merari ntrat ion of less than 3.1 ng/mL is consi dered to repre sent clini temitope defic iency . Not Available [facility] ([facility]) [address] [place], [address], 11/27/2023 03:37:23 11/26/19 24 11/27/2023 HEMOG LOBIN A1C hemoglobin A1C 6.2 % 4.8-5. 6 above high normal Predi abete s: 5.7 - 6.4 Diabe danica: >6.4 Glyce reno contr ol for adult s with diabe danica: <7.0 Not Available [facility] ([facility]) [address] [facility], [place], [address], 11/27/2023 03:37:23 11/26/19 24 11/27/2023 CBC WITH DIFFE RENTI AL/PL ATELE T WBC 9.1 x10e3 /uL 3.4-10 .8 Not Available [facility] ([facility]) [address] [facility], [place], [address], 11/27/2023 03:37:24 11/26/19 24 11/27/2023 CBC WITH DIFFE RENTI AL/PL ATELE T RBC 4.19 x10e6 /uL 3.77-5 .28 Not Available [facility] ([facility]) [address] [place], [address], 11/27/2023 03:37:24 11/26/19 24 11/27/2023 CBC WITH DIFFE RENTI AL/PL ATELE T hemoglobin 12.6 g/dL 11.1-1 5.9 Not Available [facility] ([facility]) [address] [place], [address], 11/27/2023 03:37:24 11/26/19 24 11/27/2023 CBC WITH DIFFE RENTI AL/PL ATELE T hematocrit 37.5 % 34.0-4 6.6 Not Available [facility] ([facility]) [address] [place], [address], 11/27/2023 03:37:24 11/26/19 24 11/27/2023 CBC WITH DIFFE RENTI AL/PL ATELE T MCV 90 fL 79-97 Not Available [facility] ([facility]) [address] [facility], [place], [address], 11/27/2023 03:37:24 11/26/19 24 11/27/2023 CBC WITH DIFFE RENTI AL/PL ATELE T MCH 30.1 pg 26.6-3 3.0 Not Available [facility] ([facility]) [address] [facility], [place], [address], 11/27/2023 03:37:24 11/26/19 24 11/27/2023 CBC WITH DIFFE RENTI AL/PL ATELE T MCHC 33.6 g/dL 31.5-3 5.7 Not Available [facility] ([facility]) [address] [facility], [place], [address], 11/27/2023 03:37:24 11/26/19 24 11/27/2023 CBC WITH DIFFE RENTI AL/PL ATELE T RDW 13.0 % 11.7-1 5.4 Not Available [facility] ([facility]) [address] [facility], [place], [address], 11/27/2023 03:37:24 11/26/19 24 11/27/2023 CBC WITH DIFFE RENTI AL/PL ATELE T platelets 364 x10e3 /uL 150-45 0 Not Available [facility] ([facility]) [address] [facility], [place], [address], 11/27/2023 03:37:24 11/26/19 24 11/27/2023 CBC WITH DIFFE RENTI AL/PL ATELE T neutrophils 64 % notest ab. Not Available [facility] ([facility]) [address] [place], [address], 11/27/2023 03:37:24 11/26/19 24 11/27/2023 CBC WITH DIFFE RENTI AL/PL ATELE T lymphs 24 % notest ab. Not Available [facility] ([facility]) [address] [facility], [place], [address], 11/27/2023 03:37:24 11/26/19 24 11/27/2023 CBC WITH DIFFE RENTI AL/PL ATELE T monocytes 9 % notest ab. Not Available [facility] ([facility]) [address] [facility], [place], [address], 11/27/2023 03:37:24 11/26/19 24 11/27/2023 CBC WITH DIFFE RENTI AL/PL ATELE T eos 2 % notest ab. Not Available [facility] ([facility]) [address] [facility], [place], [address], 11/27/2023 03:37:24 11/26/19 24 11/27/2023 CBC WITH DIFFE RENTI AL/PL ATELE T basos 1 % notest ab. Not Available [facility] ([facility]) [address] [facility], [place], [address], 11/27/2023 03:37:24 11/26/19 24 11/27/2023 CBC WITH DIFFE RENTI AL/PL ATELE T neutrophils (absolute) 5.9 x10e3 /uL 1.4-7. 0 Not Available [facility] ([facility]) [address] [facility], [place], [address], 11/27/2023 03:37:24 11/26/19 24 11/27/2023 CBC WITH DIFFE RENTI AL/PL ATELE T lymphs (absolute) 2.2 x10e3 /uL 0.7-3. 1 Not Available [facility] ([facility]) [address] [place], [address], 11/27/2023 03:37:24 11/26/19 24 11/27/2023 CBC WITH DIFFE RENTI AL/PL ATELE T monocytes(ab solute) 0.8 x10e3 /uL 0.1-0. 9 Not Available [facility] ([facility]) [address] [facility] [place], [address], 11/27/2023 03:37:24 11/26/19 24 11/27/2023 CBC WITH DIFFE RENTI AL/PL ATELE T eos (absolute) 0.2 x10e3 /uL 0.0-0. 4 Not Available [facility] ([facility]) [address] [facility], [place], [address], 11/27/2023 03:37:24 11/26/19 24 11/27/2023 CBC WITH DIFFE RENTI AL/PL ATELE T baso (absolute) 0.1 x10e3 /uL 0.0-0. 2 Not Available [facility] ([facility]) [address] [facility], [place], [address], 11/27/2023 03:37:24 11/26/19 24 11/27/2023 CBC WITH DIFFE RENTI AL/PL ATELE T immature granulocytes 0 % notest ab. Not Available [facility] ([facility]) [address] [facility], [place], [address], 11/27/2023 03:37:24 11/26/19 24 11/27/2023 CBC WITH DIFFE RENTI AL/PL ATELE T immature grans (abs) 0.0 x10e3 /uL 0.0-0. 1 Not Available [facility] ([facility]) [address] [place], [address], 11/27/2023 03:37:24 05/20/20 24 05/21/2024 TSH+F REE T4 TSH 0.265 uIU/m L 0.450- 4.500 below low normal Not Available [facility] ([facility]) [address] [place], [address], 05/21/2024 03:37:04 05/20/20 24 05/21/2024 TSH+F REE T4 T4,free(dire ct) 1.30 NG/dL 0.82-1 .77 Not Available [facility] ([facility]) [address] [facility], [place], [address], 05/21/2024 03:37:04 05/20/20 24 05/21/2024 LIPID PANEL WITH LDL/H DL RATIO cholesterol, total 195 mg/dL 100-19 9 Not Available [facility] ([facility]) [address] [facility], [place], [address], 05/21/2024 03:37:06 05/20/20 24 05/21/2024 LIPID PANEL WITH LDL/H DL RATIO triglyceride s 92 mg/dL 0-149 Not Available [facility] ([facility]) [address] [facility], [place], [address], 05/21/2024 03:37:06 05/20/20 24 05/21/2024 LIPID PANEL WITH LDL/H DL RATIO HDL cholesterol 60 mg/dL >39 Not Available [facility] ([facility]) [address] [facility], [place], [address], 05/21/2024 03:37:06 05/20/20 24 05/21/2024 LIPID PANEL WITH LDL/H DL RATIO VLDL cholesterol temitope 17 mg/dL 5-40 Not Available [facility] ([facility]) [address] [facility], [place], [address], 05/21/2024 03:37:06 05/20/20 24 05/21/2024 LIPID PANEL WITH LDL/H DL RATIO LDL chol calc ([facility]) 118 mg/dL 0-99 above high normal Not Available [facility] ([facility]) [address] [place], [address], 05/21/2024 03:37:06 05/20/20 24 05/21/2024 LIPID PANEL WITH LDL/H DL RATIO LDL/HDL ratio 2.0 ratio 0.0-3. 2 LDL/H DL Ratio Men Women 1/2 Avg.R isk 1.0 1.5 Avg.R isk 3.6 3.2 2X Avg.R isk 6.2 5.0 3X Avg.R isk 8.0 6.1 Not Available [facility] ([facility]) [address] [place], [address], 05/21/2024 03:37:06 05/20/20 24 05/21/2024 COMP. METAB OLIC PANEL (14) glucose 120 mg/dL 70-99 above high normal Not Available [facility] ([facility]) [address] [place], [address], 05/21/2024 03:37:07 05/20/20 24 05/21/2024 COMP. METAB OLIC PANEL (14) BUN 14 mg/dL 6-24 Not Available [facility] ([facility]) [address] [place], [address], 05/21/2024 03:37:07 05/20/20 24 05/21/2024 COMP. METAB OLIC PANEL (14) creatinine 1.40 mg/dL 0.57-1 .00 above high normal Not Available [facility] ([facility]) [address] [place], [address], 05/21/2024 03:37:07 05/20/20 24 05/21/2024 COMP. METAB OLIC PANEL (14) eGFR 43 mL/mi n/1.7 3 >59 below low normal Not Available [facility] ([facility]) [address] [place], [address], 05/21/2024 03:37:07 05/20/20 24 05/21/2024 COMP. METAB OLIC PANEL (14) BUN/creatini ne ratio 10 -23 Not Available [facility] ([facility]) [address] [place], [address], 05/21/2024 03:37:07 05/20/20 24 05/21/2024 COMP. METAB OLIC PANEL (14) sodium 140 mmol/ L 134-14 4 Not Available [facility] ([facility]) [address] [facility] [place], [address], 05/21/2024 03:37:07 05/20/20 24 05/21/2024 COMP. METAB OLIC PANEL (14) potassium 4.0 mmol/ L 3.5-5. 2 Not Available [facility] ([facility]) [address] [facility] [place], [address], 05/21/2024 03:37:07 05/20/20 24 05/21/2024 COMP. METAB OLIC PANEL (14) chloride 102 mmol/ L 96-106 Not Available [facility] ([facility]) [address] [facility] [place], [address], 05/21/2024 03:37:07 05/20/20 24 05/21/2024 COMP. METAB OLIC PANEL (14) carbon dioxide, total 23 mmol/ L 20-29 Not Available [facility] ([facility]) [address] [facility] [place], [address], 05/21/2024 03:37:07 05/20/20 24 05/21/2024 COMP. METAB OLIC PANEL (14) calcium 9.7 mg/dL 8.7-10 .2 Not Available [facility] ([facility]) [address] [facility] [place], [address], 05/21/2024 03:37:07 05/20/20 24 05/21/2024 COMP. METAB OLIC PANEL (14) protein, total 7.8 g/dL 6.0-8. 5 Not Available [facility] ([facility]) [address] [facility] [place], [address], 05/21/2024 03:37:07 05/20/20 24 05/21/2024 COMP. METAB OLIC PANEL (14) albumin 4.5 g/dL 3.8-4. 9 Not Available [facility] ([facility]) [address] [facility], [place], [address], 05/21/2024 03:37:07 05/20/20 24 05/21/2024 COMP. METAB OLIC PANEL (14) globulin, total 3.3 g/dL 1.5-4. 5 Not Available [facility] ([facility]) [address] [facility] [place], [address], 05/21/2024 03:37:07 05/20/20 24 05/21/2024 COMP. METAB OLIC PANEL (14) bilirubin, total 0.3 mg/dL 0.0-1. 2 Not Available [facility] ([facility]) [address] [facility] [place], [address], 05/21/2024 03:37:07 05/20/20 24 05/21/2024 COMP. METAB OLIC PANEL (14) alkaline phosphatase 99 IU/L 44-121 Not Available [facility] ([facility]) [address] [facility], [place], [address], 05/21/2024 03:37:07 05/20/20 24 05/21/2024 COMP. METAB OLIC PANEL (14) AST (SGOT) 18 IU/L 0-40 Not Available [facility] ([facility]) [address] [facility] [place], [address], 05/21/2024 03:37:07 05/20/20 24 05/21/2024 COMP. METAB OLIC PANEL (14) ALT (SGPT) 17 IU/L 0-32 Not Available [facility] ([facility]) [address] [facility] [place], [address], 05/21/2024 03:37:07 05/20/20 24 05/21/2024 VITAM IN B12 AND FOLAT E vitamin B12 284 pg/mL 232-12 45 Not Available [facility] ([facility]) [address] [facility] [place], [address], 05/21/2024 03:37:08 05/20/20 24 05/21/2024 VITAM IN B12 AND FOLAT E folate (folic acid), serum 9.1 NG/mL >3.0 A serum folat e merari ntrat ion of less than 3.1 ng/mL is consi dered to repre sent clini temitope defic iency . Not Available [facility] ([facility]) [address] [facility], [place], [address], 05/21/2024 03:37:08 05/20/20 24 05/21/2024 HEMOG LOBIN A1C hemoglobin A1C 6.0 % 4.8-5. 6 above high normal Predi abete s: 5.7 - 6.4 Diabe danica: >6.4 Glyce reno contr ol for adult s with diabe danica: <7.0 Not Available [facility] ([facility]) [address] [facility], [place], [address], 05/21/2024 03:37:09 05/20/20 24 05/20/2024 CBC WITH DIFFE RENTI AL/PL ATELE T WBC 12.9 x10e3 /uL 3.4-10 .8 above high normal Not Available [facility] ([facility]) [address] [facility], [place], [address], 05/21/2024 03:37:10 05/20/20 24 05/20/2024 CBC WITH DIFFE RENTI AL/PL ATELE T RBC 4.65 x10e6 /uL 3.77-5 .28 Not Available [facility] ([facility]) [address] [facility], [place], [address], 05/21/2024 03:37:10 05/20/20 24 05/20/2024 CBC WITH DIFFE RENTI AL/PL ATELE T hemoglobin 13.5 g/dL 11.1-1 5.9 Not Available [facility] ([facility]) [address] [place], [address], 05/21/2024 03:37:10 11/06/20 24 05/20/2024 CBC WITH DIFFE RENTI AL/PL ATELE T hematocrit 41.6 % 34.0-4 6.6 Not Available [facility] ([facility]) [address] [facility], [place], [address], 05/21/2024 03:37:10 05/20/20 24 05/20/2024 CBC WITH DIFFE RENTI AL/PL ATELE T MCV 90 fL 79-97 Not Available [facility] ([facility]) [address] [facility], [place], [address], 05/21/2024 03:37:10 05/20/20 24 05/20/2024 CBC WITH DIFFE RENTI AL/PL ATELE T MCH 29.0 pg 26.6-3 3.0 Not Available [facility] ([facility]) [address] [facility], [place], [address], 05/21/2024 03:37:10 05/20/20 24 05/20/2024 CBC WITH DIFFE RENTI AL/PL ATELE T MCHC 32.5 g/dL 31.5-3 5.7 Not Available [facility] ([facility]) [address] [place], [address], 05/21/2024 03:37:10 05/20/20 24 05/20/2024 CBC WITH DIFFE RENTI AL/PL ATELE T RDW 13.1 % 11.7-1 5.4 Not Available [facility] ([facility]) [address] [place], [address], 05/21/2024 03:37:10 05/20/20 24 05/20/2024 CBC WITH DIFFE RENTI AL/PL ATELE T platelets 486 x10e3 /uL 150-45 0 above high normal Not Available [facility] ([facility]) [address] [place], [address], 05/21/2024 03:37:10 05/20/20 24 05/20/2024 CBC WITH DIFFE RENTI AL/PL ATELE T neutrophils 79 % notest ab. Not Available [facility] ([facility]) [address] [facility], [place], [address], 05/21/2024 03:37:10 05/20/20 24 05/20/2024 CBC WITH DIFFE RENTI AL/PL ATELE T lymphs 16 % notest ab. Not Available [facility] ([facility]) [address] [facility], [place], [address], 05/21/2024 03:37:10 05/20/20 24 05/20/2024 CBC WITH DIFFE RENTI AL/PL ATELE T monocytes 5 % notest ab. Not Available [facility] ([facility]) [address] [facility], [place], [address], 05/21/2024 03:37:10 05/20/20 24 05/20/2024 CBC WITH DIFFE RENTI AL/PL ATELE T eos 0 % notest ab. Not Available [facility] ([facility]) [address] [facility], [place], [address], 05/21/2024 03:37:10 05/20/20 24 05/20/2024 CBC WITH DIFFE RENTI AL/PL ATELE T basos 0 % notest ab. Not Available [facility] ([facility]) [address] [facility], [place], [address], 05/21/2024 03:37:10 05/20/20 24 05/20/2024 CBC WITH DIFFE RENTI AL/PL ATELE T neutrophils (absolute) 10.1 x10e3 /uL 1.4-7. 0 above high normal Not Available [facility] ([facility]) [address] [facility], [place], [address], 05/21/2024 03:37:10 05/20/20 24 05/20/2024 CBC WITH DIFFE RENTI AL/PL ATELE T lymphs (absolute) 2.0 x10e3 /uL 0.7-3. 1 Not Available [facility] ([facility]) [address] [facility], [place], [address], 05/21/2024 03:37:10 05/20/20 24 05/20/2024 CBC WITH DIFFE RENTI AL/PL ATELE T monocytes(ab solute) 0.7 x10e3 /uL 0.1-0. 9 Not Available [facility] ([facility]) [address] [facility], [place], [address], 05/21/2024 03:37:10 05/20/20 24 05/20/2024 CBC WITH DIFFE RENTI AL/PL ATELE T eos (absolute) 0.0 x10e3 /uL 0.0-0. 4 Not Available [facility] ([facility]) [address] [facility], [place], [address], 05/21/2024 03:37:10 05/20/20 24 05/20/2024 CBC WITH DIFFE RENTI AL/PL ATELE T baso (absolute) 0.0 x10e3 /uL 0.0-0. 2 Not Available [facility] ([facility]) [address] [facility], [place], [address], 05/21/2024 03:37:10 05/20/20 24 05/20/2024 CBC WITH DIFFE RENTI AL/PL ATELE T immature granulocytes 0 % notest ab. Not Available [facility] ([facility]) [address] [facility], [place], [address], 05/21/2024 03:37:10 05/20/20 24 05/20/2024 CBC WITH DIFFE RENTI AL/PL ATELE T immature grans (abs) 0.0 x10e3 /uL 0.0-0. 1 Not Available [facility] ([facility]) [address] [place], [address], 05/21/2024 03:37:10 12/17/19 24 12/17/2023 XR, shoul fernando, 2 or more view No observ ation record ed. [address], [place], [address], 12/24/2023 01:36:04 03/07/20 24 03/06/2024 XR, lumbo sacra l spine , 2 or 3 view No observ ation record ed. [address] [facility] [address], [place], [address], 03/07/2024 12:40:07 03/09/20 24 03/06/2024 XR, cervi temitope spine No observ ation record ed. [address] [facility] [address], [place], [address], 03/09/2024 13:03:26 05/15/20 24 10/11/2023 MAMMO , scree nabil, digit al, bilat eral No observ ation record ed. BARCODE Not Available 2023 17:33:43 06/04/20 24 06/04/2024 MRI, lumba r spine , w/o contr ast No observ ation record ed. [place] [id number] [facility] [address], [place], [address], 06/09/2024 11:21:45 Result Notes None recorded. Problems Name Problem SNOMED Code Status Onset Date Resolution Date Notes Provider Name and Address Organization Details Recorded Time Benign essential hypertensio n 6241872 Active 2023 OSVALDO Kline Attn: Accountin g,[address] [facility], [place], [address], [facility] 4 22:29:06 Mixed anxiety and depressive disorder 728110362 Active 2023 OSVALDO Kline Attn: Lianain g,[address] [facility], [place], [address], [facility] 4 22:29:07 Hyperlipide guevara 91968869 Active 2023 OSVALDO Kline Attn: Accountin g,[address] [facility], [place], [address], [place] - [facility] 4 22:29:08 Well controlled type 2 diabetes mellitus 313751619 Active 2023 OSVALDO Kline Attn: Accountin g,[address] [place], [address], [place] [facility] 4 22:29:10 Body mass index 30+ - obesity 596473435 Active 2023 Gregorio Dhillon [place] null, [place] [facility] 4 15:39:12 Obesity 235538879 Active 2023 OSVALDO Kline Attn: Accountin g,[address] [place], [address], [place] [facility] 4 16:13:18 Degeneratio n of lumbar interverteb ral disc 11288337 Active 2023 OSVALDO Kline Attn: Accountin g,[address] [place], [address], [place] [facility] 4 16:13:20 Low back pain 085574680 Active 2023 OSVALDO Kline Attn: Lianain g,[address] [facility], [place], [address], [place] [facility] 4 16:13:21 Lumbar radiculopat hy 571123626 Active 2023 OSVALDO Kline Attn: Accountin g,[address] [place], [address], [place] [facility] 4 16:13:22 Positive screening for depression on PHQ-9 (Patient Health Questionnai re 9) 2950025268420 00 Active 2024 OSVALDO Kline Attn: Accountin g,[address] [place], [address], [place] [facility] 5 11:29:55 Bereavement 02160246 Active 2024 OSVALDO Kline Attn: Leeroy mcneal,[address] [facility], [place], [address], [place] [facility] 5 11:29:56 Long-term drug therapy Active 2024 OSVALDO Kline Attn: Leeroy mcneal,[address], [place], [address], [place] [facility] 20:22:57 Problem Notes None recorded. Procedures Surgical History Date Name Laterality Status Provider Name and Address Organization Details Recorded Time 01/23/20 24 hysteroscopy completed Megan Dickinson [place] [facility] 02/18/2024 15:44:16 Arthroscopic Surgery completed Swathi Zamora [place] [facility] 10/31/2023 17:20:58 Heart Surgery completed Swathi Zamora [place] [facility] 10/31/2023 17:21:03 Knee Surgery completed Swathi Zamora [place] - [facility] 10/31/2023 17:21:12 Imaging Results Imaging Date Name Status LastModified by Organiz ation Details LastModified Time 12/17/2023 XR, shoulder, 2 or more view completed [place] [id number] [facility] [address], [place], [address], 12/24/2023 01:36:04 03/06/2024 XR, lumbosacral spine, 2 or [address] view completed [address] [facility] [address], [place], [address], 03/07/2024 12:40:07 03/06/2024 XR, cervical spine completed [address] [facility] [address], [place], [address], 03/09/2024 13:03:26 10/11/2023 MAMMO, screening, digital, bilateral completed BAR[facility] Information not available 05/15/2024 17:33:43 06/04/2024 MRI, lumbar spine, w/o contrast completed [facility] [address], [place], [address], 06/09/2024 11:21:45 Procedure Notes None recorded. Medical Equipment None Reported. Allergies No known drug allergies Medications Name Sig Start Date Stop Date Status Note LastModified by Organization Details LastModified Time amoxicillin 500 mg capsule TAKE 1 CAPSULE BY MOUTH 4 TIMES A DAY 09/01 completed Not Available Not Available Not Available estradiol 0.075 mg/24 hr semiweekly transdermal patch APPLY 1 PATCH TRANSDERM ALLY TWICE A WEEK active Not Available Not Available No t Available atorvastati n 10 mg tablet TAKE 1 TABLET BY MOUTH EVERYDAY AT BEDTIME active Not Available Not Available No t Available hydrocodone 5 mg-acetamin ophen 325 mg tablet TAKE 1 TABLET BY MOUTH EVERY 4 TO 6 HOURS NEEDED FOR PAIN 05/15 completed Not Available Not Available Not Available prednisone 5 mg tablet PLEASE SEE ATTACHED FOR DETAILED DIRECTION S 09/01 completed Not Available Not Available Not Available penicillin V potassium 500 mg tablet TAKE 1 TABLET BY MOUTH 4 TIMES A DAY 05/15 completed Not Available Not Available Not Available ciprofloxac in 250 mg tablet TAKE 1 TABLET BY MOUTH EVERY 12 HOURS 11/30 completed Not Available Not Available Not Available tramadol 50 mg tablet TAKE 1 TABLET BY MOUTH EVERY 4 TO 6 HOURS NEEDED FOR PAIN active Not Available Not Available No t Available terbinafine HCl 250 mg tablet Take 1 tablet every day by oral route for 90 days. active Not Available Not Available No t Available alprazolam 0.5 mg tablet TAKE 1 TABLET TWICE A DAY BY ORAL ROUTE NEEDED. 2024 active Not Available Not Available Not Avai lable methocarbam ol 750 mg tablet TAKE 1 TABLET 3 TIMES A DAY BY ORAL ROUTE NEEDED. active Not Available Not Available No t Available lidocaine 5 % topical patch 1 (ONE) ADHESIVE PATCH, MEDICATED DAILY, LEAVE ON FOR 12 HOURS active Not Available Not Available No t Available progesteron e micronized 200 mg capsule TAKE 1 CAPSULE BY MOUTH EVERY DAY AT BEDTIME active Not Available Not Available No t Available diclofenac sodium 75 mg tablet,cristela yed release one tab po bid w/food PRN 05/15 completed Not Available Not Available Not Available aspirin 81 mg tablet Take by oral route. active Not Available Not Available No t Available methylpredn isolone 4 mg tablets in a dose pack TAKE 6 TABLETS ON DAY 1 DIRECTED ON PACKAGE AND DECREASE BY 1 TAB EACH DAY FOR A TOTAL OF 6 DAYS 09/01 completed Not Available Not Available Not Available losartan 50 mg-hydrochl orothiazide 12.5 mg tablet TAKE 1 TABLET BY MOUTH EVERY DAY active Not Available Not Available No t Available bupropion HCl XL 150 mg 24 hr tablet, extended release TAKE 1 TABLET BY MOUTH EVERY DAY active Not Available Not Available No t Available Ozempic 1 mg/dose (4 mg/3 mL) subcutaneou s pen injector INJECT 1 MG SUBCUTANE OUSLY EVERY WEEK 2024 active Not Available Not Available Not Avai lable Ozempic 0.25 mg or 0.5 mg (2 mg/3 mL) subcutaneou s pen injector INJECT 0.5MG WEEKLY 2023 active Not Available Not Available Not Avai lable Vitals Date Recorded Body height Body mass index (BMI) Body weight Heart rate Oxygen saturation Oxygen saturation in Arterial blood by Pulse oximetry Provider Name and Address Organization Details Last Updated DateTime 4 170.18 cm 39.5 kg/m2 304579. 28 g 75 /min 98 % 98 % Gregorio Dhillon MA [facility] 15:52:52 Date Recorded Systolic blood pressure Diastolic blood pressure Provider Name and Address Organization Details Last Updated DateTime 10/31/2023 130 mm[Hg] 90 mm[Hg] OSVALDO Kline Attn: Accounting,[address] [place], [address], [facility] 10/31/2023 16:33:18 Date Recorded Body height Body mass index (BMI) Body weight Respiratory rate Oxygen saturation Oxygen saturation in Arterial blood by Pulse oximetry Heart rate Systolic blood pressure Diastolic blood pressure Provider Name and Address Organization Details Last Updated DateTime 4 170.18 cm 38.1 kg/m2 734099. 95 g 18 /min 98 % 98 % 77 /min 138 mm[Hg] 88 mm[Hg] Gregorio Dhillon MA [facility] 15:45:35 Date Recorded Systolic blood pressure Diastolic blood pressure Provider Name and Address Organization Details Last Updated DateTime 05/15/2024 114 mm[Hg] 70 mm[Hg] OSVALDO Kline Attn: Accounting,[address] [place], [address], [facility] 05/15/2024 16:13:11 Date Recorded Body height Body mass index (BMI) Body weight Respiratory rate Oxygen saturation Oxygen saturation in Arterial blood by Pulse oximetry Heart rate Provider Name and Address Organization Details Last Updated DateTime 170.18 cm 36.8 kg/m2 564893. 21 g 18 /min 99 % 99 % 78 /min Gregorio Dhillon MA [facility] 5 11:03:33 Date Recorded Systolic blood pressure Diastolic blood pressure Provider Name and Address Organization Details Last Updated DateTime 09/01/2024 120 mm[Hg] 80 mm[Hg] OSVALDO Kline Attn: Accounting,[address] [place], [address] 09/01/2024 11:33:36 Social History Question Answer Notes LastModified by Organizat ion Details LastModified Time Tobacco Smoking Status Never Smoker Gregorio Dhillon MA [facility], [facility] 10/31/2023 15:51:14 Do You Have An Advance Directive? No Information not available 10/31/2023 What Is Your Level Of Alcohol Consumption? Occasional Information not available 10/31/2023 Are You Blind Or Do You Have Difficulty Seeing? No Information not available 05/15/2024 What Is Your Level Of Caffeine Consumption? Heavy Information not available 10/31/2023 In The 14 Days Before Symptom Onset, Have You Had Close Contact With A Laboratory-confir med COVID-19 While That Case Was Ill? No Information not available 10/31/2023 In The 14 Days Before Symptom Onset, Have You Had Close Contact With A Person Who Is Under Investigation For COVID-19 While That Person Was Ill? No Information not available 10/31/2023 Have You Been To An Area Known To Be High Risk For COVID-19? No Information not available 10/31/2023 Are You Currently Employed? Yes Not Right Now Information not available 09/01/2024 Are You Deaf Or Do You Have Serious Difficulty Hearing? No Information not available 05/15/2024 What Type Of Diet Are You Following? REGULAR Information not available 10/31/2023 Are There Any Guns Present In Your Home? No Information not available 10/31/2023 What Was The Date Of Your Most Recent Tobacco Screening? 09/01/2024 Information not available 09/01/2024 Do You Use Your Seat Belt Or Car Seat Routinely? Yes Information not available 10/31/2023 Do You Have Smoke And Carbon Monoxide Detectors In Your Home? Yes Information not available 10/31/2023 Do You Use Any Illicit Or Recreational Drugs? No Information not available 10/31/2023 Do You Use Sunscreen Routinely? No Information not available 10/31/2023 Has Tobacco Cessation Counseling Been Provided? Yes Information not available 10/31/2023 On What Date Was Tobacco Cessation Counseling Provided? 09/01/2024 Information not available 09/01/2024 Do You Or Have You Ever Used Any Other Forms Of Tobacco Or Nicotine? No Information not available 10/31/2023 Sex: Female Functional Status Question Answer Note LastModified by Organization D etails LastModified Time Are you able to care for yourself? Yes Information n ot available 10/31/2023 What is your exercise level? None Information not available 10/31/2023 Mental Status None recorded. Family History Nothing Reported. Medical History Condition Response Anxiety Disorder Y High Blood Pressure Y Depression Y Gynecological History Statement/Question Response Menses Monthly N Current Control Method Menopause Obstetrics History GPAL:G 6 P 3 0 0 3 Type Value Full Term 3 Induced 0 Spontaneous 0 Premature 0 Living 3 Total 6 Immunizations Vaccine Type Date Status Note Provider Harvey cruz and Address Organization Details Recorded Time COVID-19, mRNA, LNP-S, PF, 30 mcg/0.3 mL dose 02/02/2021 completed Gregorio Dhillon [place] null, [place] [facility] 05/19/2024 16:24:51 COVID-19, mRNA, LNP-S, PF, 30 mcg/0.3 mL dose 02/24/2021 completed Gregoroi Dhillon MA marc[place], [place] - [facility] 05/19/2024 16:24:51 Influenza, split virus, trivalent, PF 04/28/2024 completed Gregorio Dhillon MA marc[place], [place] - [facility] 05/19/2024 16:24:51 Past Encounters Encounter ID Performer Location Encounter Start Date Encounter Closed Date Diagnosis/Indication Diagnosis SNOMED-CT Code Diagnosis ICD10 Code Diagnosis Note [id number] OSVALDO Kline [facility] [employer] [facility] [address] [place] [address] 10/31/2023 15:20:33 10/31/2023 16:38:12 Well controlled type 2 diabetes mellitus 783973759 E11.9 continue mounjaro 5mg weekly. due for updated a1c lab Hyperlipidemia 50814838 E78.5 continue atorvastat in 10mg daily. due for fasting lipids Benign ess ential hypertension 1667824 I10 stable on losartan hctz 50/12.5mg daily Long-term drug therapy 054464980 Z79.899 routine labs due. Mixed anxi ety and depressive disorder 554373415 F41.8 refill on PRN alprazolam 0.5mg . continue wellbutrin XL 150mg daily [id number] OSVALDO Kline [facility] [employer] [address] [place] [address] 05/15/2024 15:27:59 05/15/2024 16:18:54 Body mass index 30+ - obesity 168425305 Z68.38 bmi 38.1 Obesity 612863129 E66.9 discussed healthy diet, exercise, controllin g carbohydra danica and added sugars in the diet Low back pain 513655332 M54.50 start methocarba mol 750mg tid PRN Degenerati on of lumbar intervertebral disc 08877276 M51.369 hx noted on previous imaging studies. Lumbar radiculopathy 128 789200 M54.16 proceed with MRI lumbar spine w/o contrast to evaluate the radicular etiology. Well contr olled type 2 diabetes mellitus 924124911 E11.9 increase to ozempic 1mg weekly dosing. due for updated a1c lab Hyperlipidemia 78288430 E78.5 continue atorvastat in 10mg daily. due for fasting lipids Benign ess ential hypertension 3974574 I10 stable on losartan hctz 50/12.5mg daily Long-term drug therapy 191890302 Z79.899 all routine labs due. [id number] OSVALDO Kline [facility] [facility] [place] [address] [place] [address] 09/01/2024 10:41:27 09/01/2024 11:37:12 Positive screening for depression on PHQ-9 (Patient Health Questionnaire 9) 1754234230 88382 Z13.31 Patient scored a 10 on screening today. This has been exacerbate d recently with the loss of her mother. We will continue all medication s as above. Body mass index 30+ - obesity 906585935 Z68.36 BMI down to 36.8 Obesity 515019955 E66.9 discussed healthy diet, exercise, controllin g carbohydra danica and added sugars in the diet Mixed anxi ety and depressive disorder 590941793 F41.8 stable on PRN alprazolam 0.5mg . continue wellbutrin XL 150mg daily. FMLA papers have been completed were faxed already prior to the appointmen t. Bereavement 09130110 Z63 .4 Patient is still in bereavemen t phase after the loss of her mother Lumbar radiculopathy 128 808995 M54.16 seeing IPC , has had two injections , will get 3rd injection tomorrow with better placement. Low back pain 398305407 M54.50 As above following with pain management Long-term drug therapy 357750266 Z79.899 Labs are up-to-date Health Concerns Section Related Observation LastModified by Organization Detai ls LastModified Time None Recorded Concern Status LastModified by Organization Details LastModified Time None Recorded Advance Directives Directive N: Payers Encounter Date Sequence Insurance Name Policy Number Policy Knox Covered Member ID Knox Member ID Guarantor Name 10/31/2023 1 [facility] [id number] Isela Chin [id number] Marianne Chin 05/15/2024 1 [employer] [facility] - DOS PRIOR TO 07.15.23 (PPO) Marianne Chin [id number] Marianne Chin 09/01/2024 2 [facility] [id number] Marianne Chin [id number] Marianne Chin 09/01/2024 1 [facility] [id number] Marianne Chin [id number] Marianne Chin Notes Date Note Type Note Provider Name and Address Organization Details Recorded Time 10/31/19 text/htm l Anxiety/DepressionReported bypatient.Notes:stable on PRN alprazolam 0.5mg and wellbutrin XL 150mg daily.DiabetesReported bypatient.Notes:stable on mounjaro 5mg weeklyHyperlipidemiaReported bypatient.Notes:stable on atorvastatin 10mg daily.HypertensionReported bypatient.Notes:stable on losartan hctz 50/12.5mg daily. OSVALDO Kline Attn: Accounting, [address] [place], [address], [facility] 11/12/2023 22:29:24 05/15/20 24 text/htm l Back PainReported bypatient.Location:pain radiating to the legs(LLE) Severity:worsening;moderate (5-7) Duration:chronic Onset/Timing:recurrent episode Context:prior back problems Alleviating Factors:rest; some ice use helps a little. traction helps some. Aggravating Factors:movement/positioning;twi sting;flexing back;extending back; walking , sitting, standing all hurts Associated Symptoms:no fever; no weak limbs; no tingling; no incontinence; no shortness of breath;numbness of the legs/feetNotes:unable to use NSAID therapy due to creatinine levels. only tylenol with no help.DiabetesReported bypatient.Notes:stable on ozempic 0.5mg weekly therapyHyperlipidemiaReported bypatient.Notes:stable on atorvastatin 10mg daily.HypertensionReported bypatient.Notes:stable on losartan hctz 50/12.5mg daily. OSVALDO Kline Attn: Accounting, [address] [place], [address], [facility] 05/31/2024 18:28:35 09/01/19 25 text/htm l Anxiety/DepressionReported bypatient.Notes:Anxiety and depression currently exacerbated during bereavement after the loss of her mother. Patient takes bupropion XL 150 mg weekly for her depression and does have alprazolam 0.5 mg twice daily on a p.r.n. basis. Her symptoms have just most recently been exacerbated with the loss of her mother as she has been very emotional and tearful and has been off work at this time. She is also instituted the use of her FMLA benefits and has paperwork that was completed by this office. This is the follow-up appointment after submitting that.Back PainReported bypatient.Location:pain radiating to the legs(LLE) Severity:worsening;moderate (5-7) Duration:chronic Onset/Timing:recurrent episode Context:prior back problems Alleviating Factors:rest; some ice use helps a little. traction helps some. Aggravating Factors:movement/positioning;twi sting;flexing back;extending back; walking , sitting, standing all hurts Associated Symptoms:no fever; no weak limbs; no tingling; no incontinence; no shortness of breath;numbness of the legs/feetNotes:unable to use NSAID therapy due to creatinine levels. only tylenol with no help. Patient is going to be seeing the paint specialist regarding her backDiabetesReported bypatient.Notes:stable on ozempic 0.5mg weekly therapyHyperlipidemiaReported bypatient.Notes:stable on atorvastatin 10mg daily.HypertensionReported bypatient.Notes:stable on losartan hctz 50/12.5mg daily. OSVALDO Kline Attn: Accounting, [address] [place], [address], [place] [facility] 09/13/2024 20:23:17 OBGyn Episode No OBEpisode recorded.
--- OUTSIDE RECORDS SUMMARY | 2024-10-01 15:03 | XMS_ITS | Clinical Summary ---
Author Organization [facility] Address [address] [place] [address] Care Team Providers Care Currency Machine Operator Name Role Phone Jackeline Carmel RILEY Primary Care Provider [phone] Antonio Fajardo MD Unavailable [phone] Allergies No known active allergies Medications OZEMPIC 0.25/0.5 MG/DOSE 2 MG/1.5ML injection (PEN) INJECT 0.5MG SUBCUTANEOUSLY ONCE WEEKLY DIRECTED 022 Active diclofenac EC (VOLTAREN) 75 MG tablet Take 75 mg by mouth daily. Active meloxicam (MOBIC) 15 MG tablet Take 15 mg by mouth daily. Active finasteride (PROSCAR) 5 MG tablet Take 5 mg by mouth daily. Active metFORMIN XR (GLUCOPHAGE-XR) 750 MG 24 hr tablet Take 750 mg by mouth daily with breakfast. Active atorvastatin (LIPITOR) 10 MG tablet Take 10 mg by mouth nightly at bedtime. Active losartan 50 MG TABS 50 mg, hydroCHLOROthiazide 12.5 MG CAPS 12.5 mg Take by mouth daily. Active buPROPion XL (WELLBUTRIN XL) 150 MG 24 hr tablet Take 150 mg by mouth daily. Active Immunizations Name Administration Dates Next Due PFIZER COVID-19 (ORIGINAL FO RMULATION, PURPLE CAP) mRNA, LNP-S, PF, 30 MCG/0.3 ML DOSE 02/24/2021,02/03/2021 Social History Tobacco Use Types Packs/Day Years Used Date Smoking Tobacco: Never Smokeless Tobacco: Never Alcohol Use Standard Drinks/Week Comments Never 0 (1 standard drink = 0.6 oz pur e alcohol) Comments Unknown Sex and Gender Information Value Date Recorded Sex Assigned at Female 04/22/2023 8:19 AM CDT Legal Sex Female 9:04 PM CDT Gender Identity Female 04/22/2023 8:19 AM CDT Sexual Orientation Straight 04/22/2023 8: 19 AM CDT Last Filed Vital Signs Vital Sign Reading Time Taken Comments Blood Pressure 133/68 04/30/2022 4:30 PM CDT Pulse 88 04/30/2022 4:30 PM CDT Temperature 36.6 C (97.9 F) 04/30/2022 4:30 PM CDT Respiratory Rate 18 04/30/2022 4:30 PM CDT Oxygen Saturation 99% 04/30/2022 4:30 PM CDT Inhaled Oxygen Concentration - - Weight 114.3 kg (252 lb) 04/30/2022 2:08 PM CDT Height 165.1 cm (5' 5 ) 04/30/2022 2:08 PM CDT Body Mass Index 41.93 04/30/2022 2:08 PM CDT Plan of Treatment Health Maintenance Due Date Last Done Comments Cervical Cancer Screening Pa p Smear (Age 30 to 64) Every 3 Years 1964 Colorectal Cancer Screening Colonoscopy (10 Years) 1964 Annual Physical 10/11/1967 Hepatitis C 1982 DTaP, Tdap and Td Vaccines ( 1 - Tdap) 10/11/1983 Cervical Cancer Screening Pa p with HPV Testing (Age 30 to 64) Every 5 Years 1994 Cervical Cancer Screening [facility] HPV 1994 Mammogram Screening 2004 Zoster Vaccines (1 of 2) 2014 COVID-19 Vaccine (2023-2 5 season) 2024 02/24/2021, 02/03/2021 Influenza Adult (#1) 2024 07/15/2015, 07/15/2014 Meningococcal B Vaccine Aged Out No l onger eligible based on patient's age to complete this topic Meningococcal Vaccine Aged Out No edna joy eligible based on patient's age to complete this topic Pneumococcal Vaccine: Pediatrics (0 to 5 Years) and At-Risk Patients (6 to 64 Years) Aged Out No longer eligible b ased on patient's age to complete this topic RSV Immunizations Under 20 Months Aged Out No longer eligible b ased on patient's age to complete this topic Insurance [employer] MEDICA[employer] Care Teams Currency Machine Operator Relationship Specialty Start Date End Date Carmel Viveros PA [address] [place] [id number] PCP - General PHYSICIAN INFANTRY INDIRECT FIRE CREWMEMBER 04/30/22 Antonio Fajardo MD [address] [place] [address] ORTHOPAEDIC SURGERY 04/30/22
--- OUTSIDE RECORDS SUMMARY | 2024-10-01 15:03 | XMS_ITS | Referral Summary ---
Author Organization [facility] [address] Address [address] [place] [address] Care Team Providers Care Cipher Expert Name Role Phone Carmel Viveros Primary Care Pr ovider Carmel Viveros Unavailable Allergies No known active allergies Medications metFORMIN XR (GLUCOPHAGE XR) 750 mg 24 hr tablet Take 750 mg by mouth daily with breakfast. Active ALPRAZolam (XANAX) 0.25 mg tablet Take 0.25 mg by mouth nightly as needed for anxiety. Active losartan-hydroC HLOROthiazide (HYZAAR) 50-12.5 mg per tablet 1 tablet daily. 5 05/04/2018 Active venlafaxine XR (EFFEXOR-XR) 75 mg 24 hr capsule 150 mg daily 2 06/16/2018 Active meloxicam (MOBIC) 15 mg tablet 1 tablet daily Active aspirin 81 mg enteric coated tablet Take 81 mg by mouth daily Active terbinafine (LamiSIL) 250 mg tablet Take 250 mg by mouth daily Active Active Problems Problem Noted Date Diagnosed Date Palpitations 07/11/2017 Social History Tobacco Use Types Packs/Day Years Used Date Smoking Tobacco: Never Smokeless Tobacco: Never Alcohol Use Standard Drinks/Week Comments Yes 0 (1 standard drink = 0.6 oz pur e alcohol) rarely Personal Safety Answer Date Recorded Getting School Help Needed Not on file 09/28 Comments Unknown Sex and Gender Information Value Date Recorded Sex Assigned at Not on file Legal Sex Female 7:50 AM CDT Gender Identity Female 03/21/2021 7:47 PM CDT Sexual Orientation Straight 05/02/2022 11 :00 AM CDT Last Filed Vital Signs Vital Sign Reading Time Taken Comments Blood Pressure 138/80 12/22/2019 10:03 AM CDT Pulse 112 12/22/2019 10:03 AM CDT Temperature - - Respiratory Rate 18 12/22/2019 10:03 AM CDT Oxygen Saturation 96% 12/22/2019 10:03 AM CDT Inhaled Oxygen Concentration - - Weight 120.2 kg (265 lb) 12/22/2019 10:03 AM CDT Height 170.2 cm (5' 7 ) 12/22/2019 10:03 AM CDT Body Mass Index 41.5 12/22/2019 10:03 AM CDT Plan of Treatment Not on file Insurance IDPA Care Teams Cipher Expert Relationship Specialty Start Date End Date Carmel Viveros PA PCP - General 10/04/17 Carmel Viveros PA Physician Press Supervisor 10/04/17
--- OUTSIDE RECORDS SUMMARY | 2024-10-01 15:03 | XMS_ITS | Clinical Summary ---
Author Organization [facility] [address] Address [address] [place] [address] Care Team Providers Care Division Controller Name Role Phone Carmel Viveros Primary Care [...] Problem Noted Date Diagnosed Date Palpitations 07/11/2017 Surgical History Surgery Date Site/Laterality Comments TONSILLECTOMY 07/15/1971 - 07/14/1972 PATENT DUCTUS ARTERIOUS LIGATION 07/15/1973 - 07/14/1974 BIOPSY 07/15/1978 - 07/14/1979 neck BLADDER SURGERY 07/15/2015 - 07/14/2016 KNEE SURGERY Medical History Medical History Date Comments Sleep apnea Heart murmur Family History Relation Name Status Comments Father (Age 72) Mother Alive Social History Tobacco Use Types Packs/Day Years [...] Orientation Straight 05/02/2022 11 :00 AM CDT Obstetrics History Last Filed Vital Signs Vital Sign Reading [...] Not on file Insurance IDPA Care Teams Division Controller Relationship Specialty Start Date End Date Carmel Viveros PA PCP - General 10/04/17 Carmel Viveros PA Physician Licensed Esthetician 10/04/17
--- OUTSIDE RECORDS SUMMARY | 2024-10-01 15:03 | XMS_ITS | Clinical Summary ---
Author Organization [facility] Address [address] 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 This disclosure is being madepursuant to the Care Everywhere program and may not contain all information available regarding this patient. Last updated 18.[facility] [employer] Social History Tobacco Use Types Packs/Day Years Used Date Smoking Tobacco: Never Assessed Sex and Gender Information Value Date Recorded Sex Assigned at Not on file Gender Identity Not on file Sexual Orientation Not on file Plan of Treatment Health Maintenance Due Date Last Done Comments COLOGUARD (AGES 45-75) - COL ON CA SCREENING 1964 COLON MONITORING 1964 COLONOSCOPY - COLON CA SCREENING 1964 CT COLONOGRAPHY - COLON CA SCREENING 1964 Colorectal Cancer Screening 1964 FIT - COLON CA SCREENING 1964 FLEX SIG - COLON CA SCREENING 1964 LIPID TESTING 1964 MAMMOGRAM 1964 PAP SMEAR 1964 HIV SCREENING 10/11/1979 HEPATITIS C SCREENING 10/06/1982 DTAP/TDAP/TD VACCINES (1 - Tdap) 10/11/1983 HEPATITIS B VACCINE (1 of 3 - 19+ 3-dose series) 10/11/1983 PNEUMOCOCCAL VACCINE 50+ (1 of 1 - PCV) 2014 ZOSTER VACCINE (1 of 2) 2014 COVID-19 VACCINE (1 - 2023-2 5 season) 2024 INFLUENZA VACCINE (#1) 2024 DEPRESSION SCREENING 07/15/2024 HIB VACCINE Aged Out No longer eligi ble based on patient's age to complete this topic HPV VACCINE Aged Out No longer eligi ble based on patient's age to complete this topic MENINGOCOCCAL (Group B) VACC INE SHARED DECISION-MAKING Aged Out No longer eligibl e based on patient's age to complete this topic MENINGOCOCCAL GROUPS A/C/Y/W VACCINE Aged Out No longer eligible b ased on patient's age to complete this topic PNEUMOCOCCAL VACCINE Aged Out No long er eligible based on patient's age to complete this topic Care Teams [employer] Defense [employer] Senior Sergeant Relationship Specialty Start Date End Date Bayron Roldan MD [address] [address] PCP - General 10/28/17
== END 2024-10-01 14:39 | disposition home or self-care (01) ==
PROVIDERS: PCP Physician Assistant; Visit Provider Orthopaedic Surgery
DX: M17.11 Unilateral primary osteoarthritis, right knee (principal)
CPT/HCPCS: 73564

== ENCOUNTER 2024-10-22 12:47 | Outpatient (CLI) | payer OTHER, SELFPAY ==
--- NOTE | ~2024-10-22 | XR_ITS ---
EXAM/ PROCEDURE: XR shoulder LT min 2V - 10/22/2024 13:00 CDT HISTORY: 59 years old Female with S46.012A - Strain of muscle(s) and tendon(s) of the rotat... COMPARISON: None available TECHNIQUE: 5 view(s) FINDINGS/ IMPRESSION: There are no fractures or dislocations.Joint space narrowing, subchondral sclerosis, subchondral cyst formation and osteophyte formation, compatible with gwje-ef-gkzzrrpe osteoarthritis. Reviewed, dictated and finalized at location A.
--- OUTSIDE RECORDS SUMMARY | 2024-10-22 13:10 | XMS_ITS ---
[...] and Address Organization Details Last Updated DateTime 04/18/202 4 170.18 cm 39.5 kg/m2 119517. 28 g 75 /min 98 % 98 % Gregorio Dhillon MA [facility] 4 15:52:52 Date Recorded Systolic blood pressure Diastolic blood pressure Provider Name and Address Organization Details Last Updated DateTime 10/31/2023 130 mm[Hg] 90 mm[Hg] OSVALDO Kline Attn: Accounting,[address] [place], [address], [facility] 10/31/2023 16:33:18 Date Recorded Body height Body mass index (BMI) Body weight Respiratory rate Oxygen saturation Oxygen saturation in Arterial blood by Pulse oximetry Heart rate Systolic blood pressure Diastolic blood pressure Provider Name and Address Organization Details Last Updated DateTime 4 170.18 cm 38.1 kg/m2 774130. 95 g 18 /min 98 % 98 % 77 /min 138 mm[Hg] 88 mm[Hg] Gregorio Dhillon MA [facility] 4 15:45:35 Date Recorded Systolic blood pressure Diastolic blood pressure Provider Name and Address Organization Details Last Updated DateTime 05/15/2024 114 mm[Hg] 70 mm[Hg] OSVALDO Kline Attn: [address] [place], [address], [facility] 05/15/2024 16:13:11 Date Recorded Body height Body mass index (BMI) Body weight Respiratory rate Oxygen saturation Oxygen saturation in Arterial blood by Pulse oximetry Heart rate Provider Name and Address Organization Details Last Updated DateTime 5 170.18 cm 36.8 kg/m2 287485. 21 g 18 /min 99 % 99 % 78 /min Gregorio Dhillon MA [facility] 5 11:03:33 Date Recorded Systolic blood pressure Diastolic blood pressure Provider Name and Address Organization Details Last Updated DateTime 09/01/2024 120 mm[Hg] 80 mm[Hg] OSVALDO Kline Attn: Accounting[address] [place], [address], [facility] 09/01/2024 11:33:36 Social History Question Answer Notes LastModified by Organizat ion Details LastModified Time Tobacco Smoking Status Never Smoker Gregorio Dhillon MA [facility], [place] [facility] 10/31/2023 15:51:14 Do You Have An Advance [...] Immunizations Vaccine Type Date Status Note Provider Nam e and Address Organization Details Recorded Time COVID-19, mRNA, LNP-S, PF, 30 mcg/0.3 mL dose 02/02/2021 completed [place] [place], [place] - [facility] 05/19/2024 16:24:51 COVID-19, mRNA, LNP-S, PF, 30 mcg/0.3 mL dose 02/24/2021 completed [place], [place] [facility] 05/19/2024 16:24:51 Influenza, split virus, trivalent, PF 04/28/2024 completed [place], [place] - [facility] 05/19/2024 16:24:51 Past Encounters Encounter ID Performer Location Encounter Start Date Encounter Closed Date Diagnosis/Indication Diagnosis SNOMED-CT Code Diagnosis ICD10 Code Diagnosis Note [id number] [facility] [place] [address] [place] [address] 10/31/2023 15:20:33 10/31/2023 16:38:12 Well controlled type 2 diabetes mellitus 830244590 E11.9 continue mounjaro 5mg weekly. due for updated a1c lab Hyperlipidemia 33774074 E78.5 continue atorvastat in 10mg daily. due for fasting lipids Benign ess ential hypertension 9451817 I10 stable on losartan hctz 50/12.5mg daily Long-term drug therapy 378711801 Z79.899 routine labs due. Mixed anxi ety and depressive disorder 252686124 F41.8 refill on PRN alprazolam 0.5mg . continue wellbutrin XL 150mg daily [id number] OSVALDO Kline [facility] [address] [place] [address] 05/15/2024 15:27:59 05/15/2024 16:18:54 Body mass index 30+ - obesity 287741024 Z68.38 bmi 38.1 Obesity 543531655 E66.9 discussed healthy diet, exercise, controllin g carbohydra danica and added sugars in the diet Low back pain 541235739 M54.50 start methocarba mol 750mg tid PRN Degenerati on of lumbar intervertebral disc 68582462 M51.369 hx noted on previous imaging studies. Lumbar radiculopathy 128 947891 M54.16 proceed with MRI lumbar spine w/o contrast to evaluate the radicular etiology. Well contr olled type 2 diabetes mellitus 167215864 E11.9 increase to ozempic 1mg weekly dosing. due for updated a1c lab Hyperlipidemia 89386651 E78.5 continue atorvastat in 10mg daily. due for fasting lipids Benign ess ential hypertension 4367255 I10 stable on losartan hctz 50/12.5mg daily Long-term drug therapy 297244171 Z79.899 all routine labs due. [id number] OSVALDO Kline [facility] [address] [place] [address] 09/01/2024 10:41:27 09/01/2024 11:37:12 Positive screening for depression on PHQ-9 (Patient Health Questionnaire 9) 9078478010 08240 Z13.31 Patient scored a 10 on screening today. This has been exacerbate d recently with the loss of her mother. We will continue all medication s as above. Body mass index 30+ - obesity 594634954 Z68.36 BMI down to 36.8 Obesity 395256091 E66.9 discussed healthy diet, exercise, controllin g carbohydra danica and added sugars in the diet Mixed anxi ety and depressive disorder 586941956 F41.8 stable on PRN alprazolam 0.5mg . continue wellbutrin XL 150mg daily. FMLA papers have been completed were faxed already prior to the appointmen t. Bereavement 03579280 Z63 .4 Patient is still in bereavemen t phase after the loss of her mother Lumbar radiculopathy 128 498130 M54.16 seeing IPC , has had two injections , will get 3rd injection tomorrow with better placement. Low back pain 400298741 M54.50 As above following with pain management Long-term drug therapy 630290099 Z79.899 Labs are up-to-date Health Concerns Section Related Observation LastModified by Organization Detai ls LastModified Time None Recorded Concern Status LastModified by Organization Details LastModified Time None Recorded Advance Directives Directive N: Payers Encounter Date Sequence Insurance Name Policy Number Policy Knox Covered Member ID Knox Member ID Guarantor Name 10/31/2023 1 [facility] [id number] Isela Chin [id number] Mariannejunaid Chin 05/15/2024 1 [facility] [employer] - DOS PRIOR TO 07.15.23 (PPO) Mariannejunaid Chin [id number] Mariannejunaid Chin 09/01/2024 2 [facility] [id number] Marianne Chin [id number] Marianne Chin 09/01/2024 1 [employer] [id number] Marianne Chin [id number] Marianne Chin Notes Date Note Type Note Provider Name and Address Organization Details Recorded Time 10/31/19 24 text/htm l Anxiety/DepressionReported bypatient.Notes:stable on PRN alprazolam 0.5mg and wellbutrin XL 150mg daily.DiabetesReported bypatient.Notes:stable on mounjaro 5mg weeklyHyperlipidemiaReported bypatient.Notes:stable on atorvastatin 10mg daily.HypertensionReported bypatient.Notes:stable on losartan hctz 50/12.5mg daily. OSVALDO Kline Attn: Accounting, [address] [place], [address], [place] [facility] 11/12/2023 22:29:24 05/15/20 24 text/htm l Back [...] 50/12.5mg daily. OSVALDO Kline Attn: Accounting, [address] [place], [address], [place] [facility] 05/31/2024 18:28:35 09/01/19 25 text/htm l Anxiety/DepressionReported [...] Patient is going to be seeing the animated cartoons painter regarding her backDiabetesReported bypatient.Notes:stable on ozempic 0.5mg weekly therapyHyperlipidemiaReported bypatient.Notes:stable on atorvastatin 10mg daily.HypertensionReported bypatient.Notes:stable on losartan hctz 50/12.5mg daily. OSVALDO Kline Attn: Accounting, [address] [place], [address], [facility] 09/13/2024 20:23:17 OBGyn Episode No OBEpisode recorded.
--- OUTSIDE RECORDS SUMMARY | 2024-10-22 13:10 | XMS_ITS | Clinical Summary ---
Author Organization [facility] Address [address] [place] [address] Care Team Providers Care Recycling Operator Name Role Phone Bayron Roldan MD Primary Care Provider + Source Comments [facility] [employer],non-owned Affiliates and Associated Physician Practices is amultiple site organization consisting of ambulatory clinics and hospital sitesin [place], [place], [place] and [place]. This disclosure is being madepursuant to the Care Everywhere program and may not contain all information available regarding this patient. Last updated 18.[facility] Social History Tobacco Use Types Packs/Day Years [...] 10/06/1982 DTAP/TDAP/TD VACCINES (1 - Tdap) 10/11/1983 PNEUMOCOCCAL VACCINE 50+ (1 of 1 - PCV) 2014 ZOSTER VACCINE (1 of 2) 2014 COVID-19 VACCINE ( - 2023-2 5 season) 2024 DEPRESSION SCREENING 07/15/2024 INFLUENZA VACCINE (Season Ended) 2025 Respiratory Syncytial Virus (RSV) Vaccine Pt: or over 60 yrs (1 - 1-dose 75+ series) 10/11/2039 HEPATITIS B VACCINE Aged Out No longe r eligible based on patient's age to complete this topic HIB VACCINE Aged Out No longer eligi [...] age to complete this topic Care Teams Recycling Operator Relationship Specialty Start Date End Date Bayron Roldan MD [address] [address] [address] [place] [address] PCP - General 10/28/17
--- OUTSIDE RECORDS SUMMARY | 2024-10-22 13:10 | XMS_ITS | Referral Summary ---
Author Organization [facility] [address] Address [address] [place] [address] Care Team Providers Care Lawn Service Worker Name Role Phone Carmel Viveros Primary Care [...] Not on file Insurance IDPA Care Teams Lawn Service Worker Relationship Specialty Start Date End Date Carmel Viveros PA PCP - General 10/04/17 Carmel Viveros PA Physician Terrazzo Polisher 10/04/17
--- OUTSIDE RECORDS SUMMARY | 2024-10-22 13:10 | XMS_ITS | Data Portability ---
Author Organization [place] - [facility] [email or web address], Main Office Address [address] [place] [address] Assessment No assessment recorded. Plan of Treatment Reminders Order Date Submit Date Provider Last Modified By Organization Details Last Modified Time Details Appointments None recorded. Lab HbA1c (hemoglobin A1c), blood 2022 023 [facility] 146 [facility], [address], [place], [address], 3 10:12:04 albumin/cre atinine, mass ratio, urine 2022 023 [place] [address] [facility], [address], [place], [address], 3 10:12:04 microalbumi n, urine 2022 023 [place] [address] [facility], [address], [place], [address], 3 10:12:04 CBC w/ auto diff 2022 023 [place] [facility], [address], [place], [address], 3 08:26:31 CMP, serum or plasma 2022 023 [place] [facility], [address], [place], [address], 3 15:03:00 vitamin B12 + folate, serum or blood 2022 023 [email or web address] [address] [facility], [address], [place], [address], 3 10:12:04 Referral None recorded. Procedures None recorded. Surgeries None recorded. Imaging None recorded. Medication Orders Mounjaro 2.5 mg/0.5 mL subcutaneou s pen injector 2022 023 [email or web address] [id number], [address], [place], [address], 4 16:11:17 Patient TargetsNo targets recorded. Patient InstructionsNo instructions recorded. Reason for Referral None Reported. Results Created Date Observation Date Name Description Value Unit Range Abnormal Flag Note LastModifiedBy Organization Detail LastModifiedTime 04/30/2004/30/2022 XR, wrist No observ ation record ed. [id number] [facility] [place] [address] [place], [address], 09/12/2022 13:16:14 05/17/20 22 05/17/2022 US, renal No observ ation record ed. [id number] Not Available 09/12/2022 13:16:14 05/23/20 22 05/08/2022 imagi ng/di agnos tic resul t No observ ation record ed. [id number] Not Available 09/12/2022 13:16:14 06/06/20 22 05/21/2022 XR, wrist No observ ation record ed. [id number] Antonio Fajardo MD [address] [facility] [address], [place], [address], 09/12/2022 13:16:14 07/10/20 22 07/05/2022 MAMMO , scree nabil, digit al, bilat eral No observ ation record ed. [id number] [facility] [address], [place], [address], 09/12/2022 13:16:14 07/18/19 23 06/14/2022 XR, wrist No observ ation record ed. [id number] Antonio Fajardo MD [address] [facility] [address], [place], [address], 09/12/2022 13:16:14 01/11/20 23 05/17/2022 US, renal No observ ation record ed. BARCODE Not Available 2022 15:03:01 01/11/20 23 07/05/2022 MAMMO , scree nabil, digit al, bilat eral No observ ation record ed. BARCODE Not Available 2022 15:03:01 01/11/20 23 07/11/2022 XR, chest , 1 view No observ ation record ed. BARCODE Not Available 2022 15:03:01 01/11/20 23 11/02/2022 US, ovary , for folli cular monit oring No observ ation record ed. BARCODE Not Available 2022 15:03:01 08/12/19 24 07/25/2023 XR, knee No observ ation record ed. [address] (Medical Records) [address], [place], [address], 08/12/2023 11:10:38 Result Notes None recorded. Problems Name Problem SNOMED Code Status Onset Date Resolution Date Notes Provider Name and Address Organization Details Recorded Time Leukocyto sis 261903260 Active 2021 Not Available [facility] 3 13:13:54 Benign essential hypertens ion 5435160 Active 2021 Not Available [facility] 3 13:13:54 Acquired trigger finger 8960862 Active Not Available [facility] 3 13:13:54 Body mass index 30+ - obesity 172848150 Active Not Available [facility] 3 13:13:54 Serum creatinin e above reference range 280862160 Active 2021 Not Available [facility] 3 13:13:54 Blood glucose outside reference range 163769600 Active Not Available [facility] 3 13:13:54 Mood swings 32500570 Active Not Available [facility] 3 13:13:54 Feeling stressed 131314104 Active Not Available [facility] 3 13:13:54 Flank pain 824184196 Active Not Available [facility] 3 13:13:54 Long-term drug therapy Active 2021 Not Available [facility] 3 13:13:54 Cholester ol screening Active 2021 Not Available [facility] 3 13:13:54 Low back pain 914564403 Active Not Available [facility] 3 13:13:54 Foot joint pain 686593934 Completed Not Available [facility] 3 13:13:55 Nonspecif ic abdominal pain 933717123 Active Not Available [facility] 3 13:13:55 Vaginitis 36655999 Active 2021 Not Available [facility] 3 13:13:55 Vitamin D deficienc y 94723908 Active Not Available [facility] 3 13:13:55 Sinusitis 18865150 Active Not Available [facility] 3 13:13:55 Cervical spondylos is 691545891 Active Not Available [facility] 3 13:13:55 Osteoarth ritis 119638859 Active Not Available [facility] 3 13:13:55 Body mass index 40+ - severely obese 412047868 Active 2021 Not Available [facility] 3 13:13:55 Periodic limb movement disorder 057867045 Active 2021 Not Available [facility] 3 13:13:55 Acute urinary tract infection 191118199 Active 2021 Not Available [facility] 3 13:13:55 Type 2 diabetes mellitus 42385066 Active 2021 Not Available [facility] 3 13:13:56 Well controlle d type 2 diabetes mellitus 377245330 Active 2021 Not Available [facility] 3 13:13:56 Inflammat ion of joint of foot 355626770 Active Not Available [facility] 3 13:13:56 Pain of right knee joint 11580905687 4100 Active 2021 Not Available [facility] 3 13:13:56 Foot pain 08130985 Completed Not Available [facility] 3 13:13:56 Depressed bipolar I disorder 17246821 Active 2021 Not Available [facility] 3 13:13:56 Cough 67787568 Active Not Available [facility] 3 13:13:56 Cervical radiculop athy 23201786 Active Not Available [facility] 3 13:13:56 Hyperlipi demia 25420028 Active 2021 Not Available [facility] 3 13:13:56 Increased belching 50494090 Active Not Available [facility] 3 13:13:56 Female stress incontine nce 40629554 Active Not Available [facility] 3 13:13:57 Urinary tract infectiou s disease 25704566 Active Not Available [facility] 3 13:13:57 Degenerat ion of cervical intervert ebral disc 13818407 Active Not Available [facility] 3 13:13:57 Candidias is of vagina 93937295 Active 2021 Not Available [facility] 3 13:13:57 Postmenop ausal bleeding 29789420 Completed Not Available [facility] 3 13:13:57 Obstructi ve sleep apnea syndrome 64135608 Active 2021 Not Available [facility] 3 13:13:57 Hyperinsu linism 68354205 Active Not Available [facility] 3 13:13:57 Hiatal hernia 88057852 Active Not Available [facility] 3 13:13:57 Fatigue 24464324 Active 2021 Not Available [facility] 3 13:13:57 Impaired glucose tolerance 9619908 Active Not Available [facility] 3 13:13:58 Anxiety 67365121 Active 2022 OSVAL[address] Kline [address], [place], [address] , [facility] 3 13:34:16 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 on CPAP c/o IVRC Hypertension IGT Hiatal hernia Stress urinary incontinence PLMD Vit D deficiency Cervical DDD OA Trigger finger Problem Notes None recorded. Procedures Surgical History Date Name Laterality Status Provider Name and Address Organization Details Recorded Time 022 Orthopedic Surgery completed Not Available [facility] 09/12/2022 13:12:48 021 Most Recent Mammogram completed Not Available [facility] 09/12/2022 13:12:48 020 repair of musculotendinous cuff of shoulder completed Not Available [facility] 09/12/2022 13:12:48 020 operative procedure on foot completed Not Available [facility] 09/12/2022 13:12:48 018 Date of Last Pap Smear completed Not Available [facility] 09/12/2022 13:12:48 016 Date of Last Colonoscopy completed Not Available [facility] 09/12/2022 13:12:48 016 Colonoscopy completed Not Available [facility] 09/12/2022 13:12:48 other completed Not Available [facility] 09/12/2022 13:12:48 Cardiovascular Surgery completed Not Available [facility] 09/12/2022 13:12:48 operative procedure on foot completed Not Available [facility] 09/12/2022 13:12:48 Tonsillectomy completed Not Available [facility] 09/12/2022 13:12:48 Imaging Results Imaging Date Name Status [facility] by [facility] Details LastModified Time 07/05/2022 MAMMO, screening, digital, bilateral completed [id number] [facility] [address], [place], [address], 09/12/2022 13:16:14 06/14/2022 XR, wrist completed [id number] Antonio Fajardo MD [address] [facility] [address], [place], [address], 09/12/2022 13:16:14 05/08/2022 imaging/diagnos tic result completed [id number] Information not available 09/12/2022 13:16:14 05/17/2022 US, renal completed [id number] Information not available 09/12/2022 13:16:14 04/30/2022 XR, wrist completed [id number] 0026 [facility]- [address], [address], 09/12/2022 13:16:14 05/21/2022 XR, wrist completed [id number] Antonio Fajardo MD [address] [facility] [address], [place], [address], 09/12/2022 13:16:14 05/17/2022 US, renal completed [facility] Information no t available 01/10/2023 15:03:01 07/05/2022 MAMMO, screening, digital, bilateral completed [facility] Information not available 01/10/2023 15:03:01 07/11/2022 XR, chest, 1 view completed [facility] Information not available 01/10/2023 15:03:01 11/02/2022 US, ovary, for follicular monitoring completed [facility] Information not available 01/10/2023 15:03:01 07/25/2023 XR, knee completed [address] (Medical Records) [address], [place], [address], 08/12/2023 11:10:38 Procedure Notes None recorded. Medical Equipment None Reported. Allergies Allergen ID Allergen Name Allergen Category Reaction Reaction Severity Criticality Documentation Date Start Date Code Code System Note Provider Name and Address Organization Details Recorded Time 57733 Vraylar medicatio n Not available Not available Not available 09/12/2022 05014 61 RxNorm Not Available [facility] 3 13:16:11 Medications Name Sig Start Date Stop Date Status Note LastModified by Organization Details LastModified Time diclofenac 75 mg-misopros ofelia 200 mcg tablet,imme diate,delay ed release Take 1 tablet twice a day by oral route with meals. 10/15 completed Not Available Not Available Not Available amoxicillin 500 mg capsule TAKE 1 CAPSULE 3 TIMES A DAY BY MOUTH 01/09 completed Not Available Not Available Not Available venlafaxine ER 75 mg capsule,ext ended release 24 hr TAKE ONE CAPSULE BY MOUTH EVERY DAY DIRECTED 01/19 completed Not Available Not Available Not Available paroxetine 10 mg tablet TAKE 1 TABLET DAILY 11/29 completed Not Available Not Available Not Available estradiol 0.075 mg/24 hr semiweekly transdermal patch APPLY 1 PATCH TO SKIN EVERY 3 DAYS DIRECTED active Not Available Not Available No t Available atorvastati n 10 mg tablet TAKE 1 TABLET BY MOUTH EVERY DAY AT BEDTIME 2022 active Not Available Not Available Not Avai lable azithromyci n 250 mg tablet TAKE 2 TABLETS BY MOUTH TODAY, THEN TAKE 1 TABLET DAILY FOR 4 DAYS 10/09 completed Not Available Not Available Not Available fluconazole 150 mg tablet TAKE 1 TABLET BY MOUTH DIRECTED FOR 1 DAY. MAY REPEAT ON A LATER DATE IF NEEDED 01/09 completed Not Available Not Available Not Available liothyronin e 25 mcg tablet active Not Available Not Available Not Available hydrocodone 5 mg-acetamin ophen 325 mg tablet TAKE 1 TABLET BY MOUTH EVERY 4-6 HOURS NEEDED FOR PAIN active Not Available Not Available No t Available meloxicam 15 mg tablet 01/12 completed Not Available Not Available Not Available sertraline 100 mg tablet TAKE 1 TABLET BY MOUTH EVERY DAY active Not Available Not Available No t Available venlafaxine ER 150 mg capsule,ext ended release 24 hr TAKE 1 CAPSULE BY MOUTH DAILY 12/16 completed Not Available Not Available Not Available metronidazo le 500 mg tablet Take 1 tablet every 12 hours by oral route for 7 days. active Not Available Not Available No t Available phentermine 37.5 mg tablet TAKE 1 TABLET BY MOUTH DAILY IN THE MORNING active Not Available Not Available No t Available ciprofloxac in 250 mg tablet 07/20 completed Not Available Not Available Not Available ciprofloxac in 500 mg tablet Take 1 tablet every 12 hours by oral route. 01/19 completed Not Available Not Available Not Available liothyronin e 5 mcg tablet active Not Available Not Available Not Available aspirin 81 mg tablet,cristela yed release Take 1 tablet every day by oral route. 10/16 completed Not Available Not Available Not Available tramadol 50 mg tablet active Not Available Not Available No t Available Macrobid 100 mg capsule Take 1 capsule every 12 hours by oral route. 04/10 completed Not Available Not Available Not Available oxycodone-a cetaminophe n 5 mg-325 mg tablet TAKE 1-2 TABLETS BY MOUTH EVERY 4 HOURS NEEDED 01/19 completed Not Available Not Available Not Available terbinafine HCl 250 mg tablet 12/16 completed Not Available Not Available Not Available alprazolam 0.5 mg tablet TAKE 1 TABLET BY MOUTH TWICE A DAY NEEDED active Not Available Not Available No t Available estradiol 1 mg tablet active Not Available Not Available No t Available meclizine 25 mg tablet TAKE 1 TABLET BY MOUTH THREE TIMES DAILY NEEDED FOR DIZZINESS active Not Available Not Available No t Available benzonatate 100 mg capsule TAKE 1 CAPSULE 3 TIMES A DAY NEEDED. active Not Available Not Available No t Available paroxetine 30 mg tablet Take 1 tablet every day by oral route. active Not Available Not Available No t Available paroxetine 20 mg tablet TK 1 T PO QD 10/21 completed Not Available Not Available Not Available ranitidine 150 mg tablet Take 1 tablet twice a day by oral route with meals. 04/04 completed Not Available Not Available Not Available Guaifenesin AC 10 mg-100 mg/5 mL oral liquid active Not Available Not Available Not Available diclofenac potassium 50 mg tablet take one tab po bid w/food PRN arthritis pain 10/09 completed Not Available Not Available Not Available diclofenac sodium 75 mg tablet,cristela yed release TAKE 1 TABLET BY MOUTH TWICE DAILY WITH MEALS NEEDED active Not Available Not Available No t Available diclofenac sodium 50 mg tablet,cristela yed release Take 1 tablet twice a day by oral route with meals. active Not Available Not Available No t Available ergocalcife rol (vitamin D2) 1,250 mcg (50,000 unit) capsule TAKE 1 CAPSULE BY MOUTH ONCE EVERY WEEK DIRECTED. 10/15 completed Not Available Not Available Not Available methylpredn isolone 4 mg tablets in a dose pack use as directed 10/21 completed Not Available Not Available Not Available losartan 50 mg-hydrochl orothiazide 12.5 mg tablet TAKE 1 TABLET BY MOUTH EVERY DAY active Not Available Not Available No t Available celecoxib 100 mg capsule TAKE ONE CAPSULE BY MOUTH TWICE A DAY WITH MEALS 01/19 completed Not Available Not Available Not Available ondansetron 4 mg disintegrat ing tablet DISSOLVE 1 TABLET PO Q 6 TO 8 HOURS PRN FOR NAUSEA 10/21 completed Not Available Not Available Not Available Ambien 10 mg tablet Take 1 tablet as needed by oral route at bedtime. 05/19 completed Not Available Not Available Not Available finasteride 5 mg tablet TAKE ONE TABLET BY MOUTH EVERY Saturday AND SATURDAY active Not Available Not Available No t Available phentermine 37.5 mg capsule Take 1 capsule every day by oral route. 2014 active Not Available Not Available Not Avai lable finasteride 1 mg tablet Take 1 tablet 3 times a week by oral route. 2021 active Not Available Not Available Not Avai lable progesteron e micronized 100 mg capsule TAKE 1 CAPSULE BY MOUTH ONCE A DAY AT BEDTIME. active Not Available Not Available No t Available amoxicillin 875 mg-potassiu m clavulanate 125 mg tablet Take 1 tablet every 12 hours by oral route. 2014 active Not Available Not Available Not Avai lable estradiol 0.025 mg/24 hr semiweekly transdermal patch APPLY 1 PATCH TO SKIN TWICE A WEEK DIRECTED active Not Available Not Available No t Available Bactrim DS 800 mg-160 mg tablet Take 1 tablet every 12 hours by oral route for 5 days. active Not Available Not Available No t Available metformin ER 750 mg tablet,exte nded release 24 hr TAKE 2 TABLETS BY MOUTH EVERY DAY WITH SUPPER active Not Available Not Available No t Available bupropion HCl XL 150 mg 24 hr tablet, extended release TAKE 1 TABLET BY MOUTH EVERY DAY active Not Available Not Available No t Available duloxetine 30 mg capsule,del ayed release TK ONE C PO QD 10/21 completed Not Available Not Available Not Available Guaifenesin AC 10ml 2014 active Not Available Not Available Not Avai lable Zantac 10/15 completed Not Available Not Available Not Available Paxil takes daily 2014 active Not Available Not Available Not Avai lable multivitami n one daily 12/27 completed Not Available Not Available Not Available hydrocodone 7.5 mg-acetamin ophen 300 mg tablet active Not Available Not Available No t Available acai sawant extract 500 mg capsule Take 1 capsule every day by oral route. 12/27 completed Not Available Not Available Not Available Zyrtec 10 mg capsule Take 1 capsule every day by oral route for 12 days. active Not Available Not Available No t Available Xarelto 10 mg tablet 01/19 completed Not Available Not Available Not Available Belviq 10 mg tablet Take 1 tablet twice a day by oral route. 06/20 completed Not Available Not Available Not Available Vraylar 1.5 mg capsule Take 1 capsule every day by oral route. 08/21 completed Not Available Not Available Not Available Vraylar 3 mg capsule Take 1 capsule every day by oral route in the morning. 03/02 completed Not Available Not Available Not Available Hair-Skin-N ails (vit C-biotin) 50 mg-1,250 mcg chewable tablet Take 1 tablet every day by oral route. 12/27 completed Not Available Not Available Not Available Ozempic 0.25 mg or 0.5 mg (2 mg/1.5 mL) subcutaneou s pen injector INJECT 0.5 MG SUBCUTANE OUSLY WEEKLY DIRECTED 02/08 completed Not Available Not Available Not Available Wegovy 0.25 mg/0.5 mL subcutaneou s pen injector Inject 0.5 mL every week by subcutane ous route as directed. 03/12 completed Not Available Not Available Not Available Mounjaro 5 mg/0.5 mL subcutaneou s pen injector INJECT 5 MG EVERY WEEK BY SUBCUTANE OUS ROUTE DIRECTED. active Not Available Not Available No t Available Mounjaro 2.5 mg/0.5 mL subcutaneou s pen injector INJECT 2.5 MG EVERY WEEK BY SUBCUTANE OUS ROUTE DIRECTED. 07/18 completed Not Available Not Available Not Available Ozempic 0.25 mg or 0.5 mg (2 mg/3 mL) subcutaneou s pen injector INJECT 0.5 MG SUBCUTANE OUSLY WEEKLY DIRECTED 02/08 completed Not Available Not Available Not Available Vitals Date Recorded Body mass index (BMI) Body height Oxygen saturation Oxygen saturation in Arterial blood by Pulse oximetry Heart rate Body weight Systolic blood pressure Diastolic blood pressure Provider Name and Address Organization Details Last Updated DateTime 2 40.8 kg/m2 170.18 cm 96 % 96 % 92 /min 434515. 45 g 124 mm[Hg] 64 mm[Hg] Not Available [facility] 3 13:13:35 Date Recorded Body mass index (BMI) Body height Oxygen saturation Oxygen saturation in Arterial blood by Pulse oximetry Heart rate Body temperature Body weight Systolic blood pressure Diastolic blood pressure Provider Name and Address Organization Details Last Updated DateTime 2 39.5 kg/m2 170.18 cm 99 % 99 % 93 /min 98 [degF] 579295. 28 g 150 mm[Hg] 76 mm[Hg] Not Available [facility] 3 13:13:35 Date Recorded Body mass index (BMI) Body height Oxygen saturation Oxygen saturation in Arterial blood by Pulse oximetry Heart rate Respiratory rate Body temperature Body weight Systolic blood pressure Diastolic blood pressure Provider Name and Address Organization Details Last Updated DateTime 2 39.2 kg/m2 170.18 cm 97 % 97 % 68 /min 16 /min 97.9 [degF] 933838. 09 g 128 mm[Hg] 80 mm[Hg] Not Available [facility] 3 13:13:35 Date Recorded Body height Body temperature Body weight Heart rate Oxygen saturation Oxygen saturation in Arterial blood by Pulse oximetry Systolic blood pressure Diastolic blood pressure Provider Name and Address Organization Details Last Updated DateTime 3 170.18 cm 98.2 [degF] 429930. 72 g 84 /min 98 % 98 % 140 mm[Hg] 80 mm[Hg] Jennifer Shearer RN [place] [facility] [place] [facility] 3 14:50:32 Date Recorded Body height Body mass index (BMI) Body weight Heart rate Oxygen saturation Oxygen saturation in Arterial blood by Pulse oximetry Body temperature Systolic blood pressure Diastolic blood pressure Provider Name and Address Organization Details Last Updated DateTime 3 170.18 cm 39.2 kg/m2 602538. 09 g 79 /min 98 % 98 % 98.4 [degF] 128 mm[Hg] 82 mm[Hg] Jennifer Shearer RN [place] [facility] [place] [employer] 3 14:04:46 Social History Question Answer Notes LastModified by Organizat ion Details LastModified Time Tobacco Smoking Status Never Smoker Not Available [facility] 09/12/2022 13:12:46 What Is Your Level Of Alcohol Consumption? Occasional [id number] Information not available 09/12/2022 What Is Your Level Of Caffeine Consumption? Heavy [id number] Information not available 09/12/2022 How Much Tobacco Do You Chew? None [id number] Information not available 09/12/2022 In The 14 Days Before Symptom Onset, Have You Had Close Contact With A Laboratory-confi rmed COVID-19 While That Case Was Ill? No [id number] Information not available 09/12/2022 In The 14 Days Before Symptom Onset, Have You Had Close Contact With A Person Who Is Under Investigation For COVID-19 While That Person Was Ill? No [id number] Information not available 09/12/2022 Are You Currently Employed? Yes [email or web address] Information not available 01/09/2023 What Type Of Diet Are You Following? REGULAR [id number] Information not available 09/12/2022 Which Illicit Or Recreational Drugs Have You Used? None [id number] Information not available 09/12/2022 Do You Or Have You Ever Used E-cigarettes Or Vape? 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 No [id number] Information not available 09/12/2022 Do You Use Insect Repellent Routinely? No Information not available 01/09/2023 Do You Have Any Pets? Yes Dog Inside [id number] [id number] Information not available 09/12/2022 Do You Use Your Seat Belt Or Car Seat Routinely? Yes [id number] Information not available 09/12/2022 Do You Have Smoke And Carbon Monoxide Detectors In Your Home? Yes [id number] Information not available 09/12/2022 Do You Or Have You Ever Used Smokeless Tobacco? Never Used Smokeless Tobacco [id number] Information not available 09/12/2022 How Much Tobacco Do You Smoke? No [id number] Information not available 09/12/2022 Do You Use Any Illicit Or Recreational Drugs? No [id number] Information not available 09/12/2022 Do You Use Sunscreen Routinely? Yes [id number] Information not available 01/09/2023 Have You Recently Traveled Abroad? No [id number] Information not available 09/12/2022 Do You Have Any Dietary Restrictions? No MIGRATION.17884 [id number] Information not available 09/12/2022 Do You Or Have You Ever Used Any Other Forms Of Tobacco Or Nicotine? No MIGRATION.09084 [id number] Information not available 09/12/2022 Sex: Unknown Functional Status Question Answer Note LastModified by [employer] Details LastModified Time What is your exercise level? Occasional [id number] Information not available 09/12/2022 Mental Status None recorded. Family History Relationship Description Onset Age of this Age Resolved Age Notes LastModified by Organization Details LastModified Time Father Malignant neoplastic disease [id number] Not available 09/12/2022 13:12:50 Medical History Condition Response CARDIAC ARRHYTHMIA Y EYE PROBLEMS Y OBESITY Y ANXIETY DISORDER Y BRONCHITIS Y BACK / NECK PROBLEMS Y DEPRESSION (INCLUDING POST ) Y Gynecological History Statement/Question Response Abnormal Pap N Date of Last Mammogram 01/31/2021 Date of Last Colonoscopy 01/27/2016 Most Recent Bone Density Sexually Active? N Menses Monthly N Date of Last Pap 01/27/2021 Date of Last Pap Smear 10/15/2017 Most Recent Mammogram 01/31/2021 Age at Menarche 11 Current Control Method Tubal Ligat ion Obstetrics History GPAL:G 6 P 0 0 3 3 Type Value Spontaneous 3 Living 3 Total 6 Immunizations Vaccine Type Date Status Note Provider Nam e and Address Organization Details Recorded Time COVID-19, mRNA, LNP-S, PF, 30 mcg/0.3 mL dose completed Not Available [facility] 09/12/2022 13:16:08 influenza, unspecified formulation 6 completed Not Available [facility] 09/12/2022 13:16:08 influenza, unspecified formulation 5 completed Not Available [facility] 09/12/2022 13:16:08 Past Encounters Encounter ID Performer Location Encounter Start Date Encounter Closed Date Diagnosis/Indication Diagnosis SNOMED-CT Code Diagnosis ICD10 Code Diagnosis Note [id number] [facility] [place] [address] [place] [address] 12/16/2020 00:00:00 01/07/2021 21:28:48 [id number] [facility] [place] [address] [place] [address] 01/26/2021 00:00:00 02/10/2021 17:41:42 [id number] _ATHENA_M IGRATION_ DEFAULT_1 _1 , 01/27/2021 00:00:00 01/27/2021 10:10:27 [id number] _ATHENA_M IGRATION_ DEFAULT_1 _1 , 02/17/2021 00:00:00 02/17/2021 12:57:46 [id number] [facility] [place] [address] [place] [address] 03/02/2021 00:00:00 03/14/2021 19:18:19 [id number] [facility] [place] [address] [place] [address] 08/21/2021 00:00:00 09/11/2021 19:25:54 [id number] [facility] [place] [address] [place] [address] 12/27/2021 00:00:00 12/27/2021 13:20:24 [id number] [facility] [place] [address] [place] [address] 04/10/2022 00:00:00 04/10/2022 15:31:37 [id number] [facility] [place] [address] [place] [address] 05/10/2022 00:00:00 05/10/2022 23:01:14 [id number] Nubia Shae, SVP MARKETING[employer] [facility] Pul[facility] [place] [address] [place] [address] 10/12/2022 14:46:11 10/15/2022 08:44:35 Obstructive sleep apnea syndrome 37531091 G47.33 Home study 06/28/21 with AHI 34Titratio n 08/03/21 with best pressure achievedMa chine set up 11/09/21Do wnload today with 90% use greater than 4 hours.She is on pressure 5 cm H2OAHI is 2.2ESS 2She has good use and clinical benefitOSA is well correctedE ncouraged 100% compliance with all sleepFollo w with PCM for labsAdvise d good sleep habits and patterns:- Set a goal for at least 7 to 8 hours of sleep time per day.-Use the bed mainly for sleep and to go to bed only when tired. If unable to fall asleep after 30 minutes, patient should get out of bed but should not engage in any activity that requires sustained mental alertness. -Maintain a regular bedtime and wake-up time even on weekends or days off of work.-Avoi d excessive naps during the daytime. If a nap is necessary, limit it to no more than 30minutes. -Minimize environmen ann noise, bright lights, and extremes in bedroom temperatur e.-Avoid alcohol, caffeinate d beverages, and nicotine products for at least 6 hours prior to bedtime.-A void strenuous exercise and large meals for at least 4 hours prior to bedtime.Di scussed supply cleaning and reordering Aware of reportable signs and symptomsRT C in one year PRN for concerns [id number] OSVALDO Kline [facility] [place] [address] [place] [address] 01/10/2023 13:56:40 01/10/2023 14:31:54 Benign essential hypertension 9038411 I10 stable on losartan hctz Long-term drug therapy 081251757 Z79.899 routine CBC, CMP and B12 ude Serum crea tinine above reference range 309873317 R79.89 due for labs. renal u/s is normal. Retinopath y due to type 2 diabetes mellitus 361875959 E11.319 retinopath y new finding from eye doctor. she is due for labs. change to mounjaro therapy if insurance will approve. Anxiety 01798764 F41.9 stable on prn alprazolam Health Concerns Section Related Observation LastModified by Organization Detai ls LastModified Time None Recorded Concern Status LastModified by Organization Details LastModified Time None Recorded Advance Directives Directive None Recorded Payers Encounter Date Sequence Insurance Name Policy Number Policy Knox Covered Member ID Knox Member ID Guarantor Name 10/12/[address] [facility] - LABORERS & OPERATING ENGINEERS [facility] Marianne Chin [id number] Marianne L Giuseppe 10/12/2022 2 [place] [facility] Marianne Chin [id number] Marianne Kendall Giuseppe 01/10/[address] [facility] ADMIN - LABORERS & OPERATING [employer] [facility] Marianne Faiza Chin [id number] Marianne Kendall Giuseppe 01/10/2023 2 [place] [facility] Marianne Faiza Chin [id number] Marianne Kendall Giuseppe Notes Date Note Type Note Provider Name and Address Organization Details Recorded Time 05/10/20 22 text/htm l Generic HPI TemplateReported bypatient.Notes:Pt is here for an e/r f/u from 04/30/22 for Lt wrist injury. She She fell in the middle of the night and fell w/her Lt arm outward. She has already seen ortho and had surgery on her wrist Saturday for fracture in distal arm. She is doing well. She said her labs from the hospital were abnormal and wants to f/u on those as well. They were concerned about her creatinine and wbc's Not Available [place] [facility] [email or web address] 05/10/2022 23:01:14 10/13/19 23 text/htm l Ms Chin presents to follow up on OSADoing well on PAP with no complaintsDoes not wake at night for nocturia or restlessness.No waking at night due to mask leak or discomfort - she uses nasal pillows and tells me they fit wellDenies morning headaches and daytime naps.Does not fall asleep unintentionally during the day.Energy levels are goodDenies xerostomia and aerophagiaHas been working on weight loss Nubia Kaufman, SVP MARK[employer] [address], [place], [address], [employer] 10/12/2022 16:30:24 01/11/20 23 text/htm l Anxiety, Generalized DisorderReported bypatient.Notes:using PRN alprazolam at this timeDiabetesReported bypatient.Notes:stable on metformin therapy and ozempicHypertensionReported bypatient.Notes:stable on losartan hctz pt is here to discuss diabetic retinopathy, states her eye dr believes she has it. their office is faxing over office notes. OSVALDO Kline [address], [place], [address], [employer] 01/10/2023 19:26:27 OBGyn Episode No OBEpisode recorded.
--- OUTSIDE RECORDS SUMMARY | 2024-10-22 13:10 | XMS_ITS | Clinical Summary ---
Author Organization [facility] Address [address] [place] [address] Care Team Providers Care Stripper Preliminary Name Role Phone Jackeline Carmel RILEY Primary Care Provider [phone] Antonio Fajardo MD Unavailable [phone] Allergies No known active allergies Medications OZEMPIC [...] Every 5 Years 1994 Cervical Cancer Screening [facility] HPV 1994 Mammogram Screening 2004 Zoster Vaccines (1 of 2) 2014 COVID-19 Vaccine (3 - 2023-2 5 season) 2024 02/24/2021, 02/03/2021 RSV Immunization or 60+ Years (1 - Risk 60-74 years 1-dose series) 2024 Meningococcal B Vaccine Aged Out No l [...] this topic Insurance [employer] MEDICAID Care Teams Stripper Preliminary Relationship Specialty Start Date End Date Carmel Viveros PA [address] [place] [id number] PCP - General PHYSICIAN TECHNOLOGY ASSISTANT 04/30/22 Antonio Fajardo MD [address] [place] [address] ORTHOPAEDIC SURGERY 04/30/22
--- OUTSIDE RECORDS SUMMARY | 2024-10-22 13:10 | XMS_ITS | Clinical Summary ---
Author Organization [facility] [address] Address [address] [place] [address] Care Team Providers Care Vein Pumper Name Role Phone Carmel Viveros Primary Care [...] Not on file Insurance IDPA Care Teams Vein Pumper Relationship Specialty Start Date End Date Carmel Viveros PA PCP - General 10/04/17 Carmel Viveros PA Physician Lab Clerk 10/04/17
== END 2024-10-22 12:48 | disposition home or self-care (01) ==
PROVIDERS: PCP Physician Assistant; Visit Provider Orthopaedic Surgery
DX: S46.012A Strain of muscle(s) and tendon(s) of the rotator cuff of left shoulder, initial encounter (principal); M19.012 Primary osteoarthritis, left shoulder
CPT/HCPCS: 73030

== ENCOUNTER 2025-02-18 07:48 | Outpatient (CLI) | payer OTHER, SELFPAY ==
--- NOTE | ~2025-02-18 | MM_ITS ---
EXAMINATION: MM screening jet BI w kenia HISTORY: Screening TECHNIQUE: Craniocaudal and mediolateral oblique 3-D tomosynthesis images were obtained and synthetic 2-D images were generated. CAD analysis was submitted and interpreted. COMPARISON: Comparison to multiple prior studies sequentially, with oldest reviewed study dated 10/10 through 10/09/2016. BREAST PARENCHYMAL COMPOSITION: There are scattered areas of fibroglandular density. FINDINGS: There is no evidence of suspicious mass, calcification, or architectural distortion to sug gest malignancy in either breast. IMPRESSION: 1. No mammographic evidence of malignancy. 2. Recommend routine screening mammography in one year. BI-RADS Category 1: Negative Reviewed, dictated and finalized at location B.
--- OUTSIDE RECORDS SUMMARY | 2025-02-18 07:52 | XMS_ITS | Clinical Summary ---
Author Organization [facility] Address [address] [place] [address] Care Team Providers Care Chemical Production Technician Name Role Phone Jackeline Carmel RILEY Primary Care Provider [phone] Antonio Fajardo MD Unavailable [phone] Allergies No known active allergies Medications OZEMPIC [...] 150 mg by mouth daily. Active Immunizations Immunization Administration Dates Next Due PFIZER COVID-19 (ORIGINAL [...] 2:08 PM CDT Height 165.1 cm (5' 5) 04/30/2022 2:08 PM CDT Body Mass Index [...] Every 5 Years 1994 Cervical Cancer Screening wi HPV 1994 Mammogram Screening 2004 Pneumococcal Vaccine: 50+ Years (1 of 1 - PCV) 2014 Zoster Vaccines (1 of 2) 2014 COVID-19 [...] this topic Insurance [employer] MEDICAID Care Teams Chemical Production Technician Relationship Specialty Start Date End Date Carmel Viveros PA PCP - General PHYSICIAN NATIONAL EXPANSION RECRUITER 04/30/22 Antonio Fajardo MD [address] [address] ORTHOPAEDIC SURGERY 04/30/22
--- OUTSIDE RECORDS SUMMARY | 2025-02-18 07:52 | XMS_ITS | Clinical Summary ---
Author Organization [facility] [address] Address [address] [place] [address] Care Team Providers Care Sweatband Perforator Name Role Phone Carmel Viveros Primary Care [...] 10:03 AM CDT Height 170.2 cm (5' 7) 12/22/2019 10:03 AM CDT Body Mass Index 41.5 12/22/2019 10:03 AM CDT Plan of Treatment Not on file Insurance IDPA Care Teams Sweatband Perforator Relationship Specialty Start Date End Date Carmel Viveros PA PCP - General 10/04/17 Carmel Viveros PA Physician Lockstitch Machine Operator 10/04/17
--- OUTSIDE RECORDS SUMMARY | 2025-02-18 07:52 | XMS_ITS | Clinical Summary ---
Author Organization [facility] Address [address] [place] [address] Care Team Providers Care Bottling Machine Operator Name Role Phone Bayron Roldan MD Primary Care Provider + Source Comments [facility] [employer],non-owned Affiliates and Associated Physician Practices is amultiple site organization consisting of ambulatory clinics and hospital sitesin [place], [place] and [place]. This disclosure is being madepursuant to the Care Everywhere program and may not contain all information available regarding this patient. Last updated 18.[facility] [employer] Social History Tobacco Use Types Packs/Day Years Used Date Smoking Tobacco: Never Assessed Comments Unknown Sex and Gender Information Value Date Recorded Sex Assigned at Not on file Legal Sex Female 10:37 AM CDT Gender Identity Not on file Sexual Orientation [...] SCREENING 1964 LIPID TESTING 1964 MAMMOGRAM 1964 HIV SCREENING 10/11/1979 HEPATITIS C SCREENING 10/06/1982 DTAP/TDAP/TD VACCINES (1 - Tdap) 10/11/1983 PAP SMEAR 1985 PNEUMOCOCCAL VACCINE 50+ (1 of 1 - PCV) 2014 ZOSTER VACCINE (1 of 2) 2014 COVID-19 VACCINE (1 - 2023-2 5 season) 2024 DEPRESSION SCREENING 07/15/2024 INFLUENZA VACCINE (#1) 2025 Respiratory Syncytial Virus (RSV) Vaccine Pt: [...] patient's age to complete this topic [place] [address] * Guarantor: AZAR CHIN Account Type Relation to Patient Date of Phone Billing Address Personal/Family [address] [place] [address] SELF PAY NO INSURANCE Member Subscriber Plan / Payer (Ef fective for All Dates) Name:Azar Chin Member ID:Not on file Relation to Subscriber:Not on file Name:AZAR CHIN Subscriber ID:Not on file Address: [address] [place] [address] Payer ID:Not on file Group ID:Not on file Type:Self Pay Address: [facility] Member Subscriber Plan / Payer (Ef fective 2023-Present) Name:Azar Chin Relation to Subscriber:Self Name:Azar Chin Payer ID:[id number] (NAIC) Type:HMO Address: [address] * Guarantor: AZAR CHIN Account Type Relation to Patient Date of Phone Billing Address Personal/Family [address] [place] [address] SELF PAY NO INSURANCE Member Subscriber Plan / Payer (Ef fective for All Dates) Name:Azar Chin Member ID:Not on file Relation to Subscriber:Not on file Name:AZAR CHIN Subscriber ID:Not on file Address: [address] [address] Payer ID:Not on file Group ID:Not on file Type:Self Pay Address: [facility] Member Subscriber Plan / Payer (Ef fective 2023-Present) Name:Azar Chin Relation to Subscriber:Self Name:Azar Chin Payer ID:[id number] (NAIC) Type:O Address: [address] * Guarantor: AZAR CHIN Account Type Relation to Patient Date of Phone Billing Address Personal/Family [address] [address] SELF PAY NO INSURANCE Member Subscriber Plan / Payer (Ef fective for All Dates) Name:Azar Chin Member ID:Not on file Relation to Subscriber:Not on file Name:AZAR CHIN Subscriber ID:Not on file Address: [address] [address] Payer ID:Not on file Group ID:Not on file Type:Self Pay Address: [facility] Care Teams Bottling Machine Operator Relationship Specialty Start Date End Date Bayron Roldan MD [address] [address] PCP - General 10/28/17
== END 2025-02-18 07:49 | disposition home or self-care (01) ==
LOC: ANHIMG 07:51
PROVIDERS: PCP Physician Assistant; Visit Provider Obstetrics & Gynecology
DX: Z12.31 Encounter for screening mammogram for malignant neoplasm of breast (principal)
CPT/HCPCS: 77063; 77067

== ENCOUNTER 2025-05-10 08:18 | Outpatient (CLI) | payer OTHER, SELFPAY ==
--- NOTE | ~2025-05-10 | CT_ITS ---
EXAMINATION: CT_LERTCWO_CT DATE: 05/10/2025 08:37 INDICATION: Right knee osteoarthritis for preoperative evaluation. TECHNIQUE: High resolution computed tomography (CT) of the right lower leg from above the hip through the foot was performed without intravenous contrast. Additional sagittal and coronal reconstructions were performed. Automated exposure control and iterative reconstruction technique were employed. The dose- length product was 1854.70 mGy-cm. COMPARISON: None FINDINGS: Bone alignment is normal. No fractures. Mild osteoarthritis at the left hip. Tricompartmental osteoarthritis at the right knee, severe in the middle compartment with early remodeling and subarticular sclerosis along the medial tibial plateau and anterior weightbearing medial femoral condyle. Small marginal osteophytes at the medial and patellofemoral compartments with moderate joint space narrowing in the patellofemoral compartment. Small right knee joint effusion. Polyarticular osteoarthritis at the right foot, severe at the second-fifth tarsal metatarsal joints which may be related to prior trauma with position of slight subluxations at the third and fourth tarsometatarsal joints. Attempted right second tarsal metatarsal arthrodesis with staple fixation. There appears be a persistent lucency across the joint space which appears likely still unfused. Additional severe osteoarthritis at the fixation between the navicula and the medial cuneiform. Mild osteoarthritis at many of the remaining joints in the right foot. Visualized visceral organs in the pelvis are unremarkable. Phleboliths versus to ligation rings at the bilateral adnexa. No free fluid in the pelvis. No pathologically enlarged right pelvic or inguinal lymphadenopathy. IMPRESSION: 1. Tricompartmental osteoarthritis the right knee, severe in the medial compartment. 2. Severe polyarticular osteoarthritis in the right midfoot with attempted instrumented second tarsal metatarsal arthrodesis which appears to remain unfused. Reviewed, dictated and finalized at location A. IMPRESSION: 1. Tricompartmental osteoarthritis the right knee, severe in the medial compart ment. 2. Severe polyarticular osteoarthritis in the right midfoot with attempted inst rumented second tarsal metatarsal arthrodesis which appears to remain unfused.
--- OUTSIDE RECORDS SUMMARY | 2025-05-10 08:36 | XMS_ITS | Clinical Summary ---
Author Organization [facility] Address [address] [place] [address] Care Team Providers Care Elder Assistant Name Role Phone Bayron Roldan MD Primary Care Provider + Source Comments [facility] [employer],non-owned Affiliates and Associated Physician Practices is amultiple site organization consisting of ambulatory clinics and hospital sitesin [place], [place], [place] and [place]. This disclosure is being madepursuant to the Care Everywhere program and may not contain all information available regarding this patient. Last updated 18.[facility] [employer] Social History Tobacco Use Types Packs/Day Years [...] 2014 ZOSTER VACCINE (1 of 2) 2014 DEPRESSION SCREENING 07/15/2024 COVID-19 VACCINE (1 - 2024-2 5 season) 2025 INFLUENZA VACCINE (#1) 2025 Respiratory Syncytial Virus [...] patient's age to complete this topic Insurance [place] [address] * Guarantor: AZAR CHIN Account Type Relation to Patient Date of Phone Billing Address Personal/Family [address] [place] [address] SELF PAY NO INSURANCE Member Subscriber Plan / Payer (Ef fective for All Dates) Name:Azar Chin Member ID:Not on file Relation to Subscriber:Not on file Name:AZAR CHIN Subscriber ID:Not on file Address: [address] [place] [address] Payer ID:Not on file Group ID:Not on file Type:Self Pay Address: [facility] Member Subscriber Plan / Payer (Ef fective 2023-Present) Name:Azar Chin Relation to Subscriber:Self Name:Azar Chin Payer ID:[id number] (NAIC) Type:HMO Address: [address] * Guarantor: AZAR CHIN Account Type Relation to Patient Date of Phone Billing Address Personal/Family [address] [place] [address] SELF PAY NO INSURANCE Member Subscriber Plan / Payer (Ef fective for All Dates) Name:Azar Chin Member ID:Not on file Relation to Subscriber:Not on file Name:AZAR CHIN Subscriber ID:Not on file Address: [address] [address] Payer ID:Not on file Group ID:Not on file Type:Self Pay Address: [facility] Member Subscriber Plan / Payer (Ef fective 2023-Present) Name:Azar Chin Relation to Subscriber:Self Name:Azar Chin Payer ID:[id number] (NAIC) Type:O Address: [address] * Guarantor: AZAR CHIN Account Type Relation to Patient Date of Phone Billing Address Personal/Family [address] [address] SELF PAY NO INSURANCE Member Subscriber Plan / Payer (Ef fective for All Dates) Name:Azar Chin Member ID:Not on file Relation to Subscriber:Not on file Name:AZAR CHIN Subscriber ID:Not on file Address: [address] [address] Payer ID:Not on file Group ID:Not on file Type:Self Pay Address: [facility] Care Teams Elder Assistant Relationship Specialty Start Date End Date Bayron Roldan MD [address] [address] PCP - General 10/28/17
== END 2025-05-10 08:19 | disposition home or self-care (01) ==
PROVIDERS: Visit Provider Orthopaedic Surgery
DX: M17.11 Unilateral primary osteoarthritis, right knee (principal); M19.271 Secondary osteoarthritis, right ankle and foot
CPT/HCPCS: 73700